=== PATIENT | female | born 1955 | race Caucasian/White ===

== ENCOUNTER 2017-08-27 07:58 | Inpatient (IN) | payer MEDICARE ==
[~2017-08-27] VITALS: Ht 157.5 cm; Wt 106.0 kg
[2017-08-27] VITALS (8 sets, daily range): BP systolic 141–192; BP diastolic 78–114; PULSE 80–102; RESP 17–21; TEMP 98–98.5; O2SAT 94–95
[~2017-08-27 07:58] MED LIST: AMLO5 PO; BUSP10TA PO; BUSP5TAB PO; CETI10 PO; CYMB60CA PO; EPIN1INJ21 IV PUSH; EPIN1INJ21 SQ; FOLI5CAP PO; GABA300C5 PO; GEMF600T PO; GLIP5TAB8 PO; INVA1INJ IV; LIPI20TA PO; METO50TA PO; METR-1 PO; NORC5TAB PO; OMEP20TA93 PO; SOLU250I IV PUSH; SYNT25TA PO
[2017-08-27] MEDS ORDERED: NITROGLYCERIN 2% OINT 1 GM PACKET TOP ONE (08:15)
--- NOTE | 2017-08-27 08:16 | PD ---
HPI Chief Complaint: Chest Pain Time Seen by Provider: 08:03 Travel History International Travel<30 days: No Contact w/Intl Traveler<30days: No Traveled to known affect area: No History of Present Illness HPI The patient is a 62-year-old female who presents to the emergency department via EMS for chest pain. The patient states she awakened at 5 AM, was feeling well, however, at 5:30 AM she developed chest pain. The chest pain was substernal, described as pressure, and radiating to the left arm. The patient also had shortness of breath and nausea without any diaphoresis. The patient does have a history of hypertension, hyperlipidemia, diabetes, and tobacco use. She denies any known history of coronary artery disease. 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 Marty Salazar. The patient was administered aspirin and 3 nitroglycerin sublingual prior to arrival. The patient's chest pain went from an 8/10 to a 0/ 10. Upon arrival the patient is chest pain-free. Symptoms are moderate, alleviated by nitroglycerin, and there are no known exacerbating factors. The patient denies any history of pulmonary embolism, DVT, recent travel, but was hospitalized 1 month ago at [facility]. [facility] Past Medical History Anxiety: Yes Depression: Yes Cardiovascular Problems: Yes Diabetes: Yes Hypertension: Yes Psychiatric: Yes (PTSD) Myocardial Infarction: Yes Thyroid Disease: Yes Triglycerides - High: Yes ?: Not Past Surgical History Gynecologic Surgery: Yes (partial hysterectomy) Hysterectomy: Yes Other Surgery: Yes (carpal tunnel) Social History Alcohol Use: Yes Tobacco Use: Yes Substance Use: Yes Allergies-Medications (Allergen,Severity, Reaction): Coded Allergies: piperacillin (Verified Allergy, Severe, Rash, 08/27/17) Maculopapular all over the body. Was also on Dilaudid. Both stopped at same time and rash resolved. sulfamethoxazole (Verified Allergy, Severe, Rash, 08/27/17) tazobactam (Verified Allergy, Severe, Rash, 08/27/17) Maculopapular all over the body. Was also on Dilaudid. Both stopped at same time and rash resolved. trimethoprim (Verified Allergy, Severe, 08/27/17) ciprofloxacin (Verified Allergy, Intermediate, Flushing, red raised rash, 08/27/17) nalbuphine (Verified Allergy, Unknown, 08/27/17) Reported Meds & Prescriptions Reported Meds & Active Scripts Active Invanz Inj (Ertapenem) 1 Gm Addvial 1,000 Mg IV DAILY Stop date: 06/24/2016 Epinephrine Inj 1 Mg/Ml Inj 0.3 Mg SQ ONCE PRN Give with any signs of respiratory distress. Epinephrine Inj 1 Mg/Ml Inj 0.3 Mg IV PUSH ONCE PRN Solu-Cortef Inj (Hydrocortisone Sodium Succinate) 250 Mg Inj 250 Mg IV PUSH ONCE PRN Give over 30-60 seconds. Flagyl (Metronidazole) 500 Mg Tab 500 Mg PO Q8HR 21 Days Reported Folic Acid 0.8 Mg Tab 1,000 Mcg PO DAILY Buspirone (Buspirone HCl) 10 Mg Tab 10 Mg PO BID Hydralazine HCl 50 Mg Tablet BID Novolin N Inj (Insulin Human NPH) 1,000 Unit/10 Ml Vial 20 Units SQ Novolog Flexpen Inj (Insulin Aspart) 300 Unit/3 Ml Pen 1 Units SQ Gabapentin 300 Mg Cap 300 Mg PO HS Buspirone (Buspirone HCl) 5 Mg Tab 5 Mg PO BID Synthroid (Levothyroxine Sodium) 25 Mcg Tab 25 Mcg PO DAILY Omeprazole 20 Mg Tab 20 Mg PO DAILY Glipizide 5 Mg Tab 2.5 Mg PO BIDAC Take 30 minutes before a meal Lipitor (Atorvastatin Calcium) 20 Mg Tab 20 Mg PO HS Metoprolol Tartrate 50 Mg Tab 50 Mg PO BID Cymbalta DR (Duloxetine HCl) 60 Mg Capdr 60 Mg PO DAILY Gemfibrozil 600 Mg Tab 600 Mg PO BIDAC Take 30 minutes prior to breakfast and dinner. Review of Systems Except as stated in HPI: all other systems reviewed are Neg General / Constitutional: No: Fever HENT: No: Lightheadedness Cardiovascular: Positive: Chest Pain or Discomfort, No: Diaphoresis, Dyspnea on exertion Respiratory: Positive: Shortness of Breath Gastrointestinal: Positive: Nausea, No: Vomiting Musculoskeletal: No: Edema Neurologic: No: Dizziness Physical Exam Narrative GENERAL: Awake, alert, pleasant 8-year-old female who appears her stated age and is in no acute respiratory distress. SKIN: Focused skin assessment warm/dry. HEAD: Atraumatic. Normocephalic. EYES: Pupils equal and round. No scleral icterus. No injection or drainage. ENT: No nasal bleeding or discharge. Mucous membranes pink and moist. NECK: Trachea midline. No JVD. CARDIOVASCULAR: Regular, tachycardic with a heart rate of 100. RESPIRATORY: No accessory muscle use. Clear to auscultation. Breath sounds equal bilaterally. GASTROINTESTINAL: Abdomen soft, obese, no rebound tenderness. MUSCULOSKELETAL: No obvious deformities. No clubbing. No cyanosis. No edema. NEUROLOGICAL: Awake and alert. No obvious cranial nerve deficits. Motor grossly within normal limits. Normal speech. Nonfocal. PSYCHIATRIC: Appropriate mood and affect; insight and judgment normal. Data Data Last Documented VS Vital Signs Date Time Temp Pulse Resp B/P (MAP) Pulse Ox O2 Delivery O2 Flow Rate FiO2 08/27/17 08:14 95 Nasal Cannula 2.00 08/27/17 08:09 08/27/17 08:02 98.5 98 21 Orders Orders Electrocardiogram (08/27/17 08:04) Ckmb (Isoenzyme) Profile (08/27/17 08:04) Complete Blood Count With Diff (08/27/17 08:04) Comprehensive Metabolic Panel (08/27/17 08:04) D-Dimer (08/27/17 08:04) Magnesium (Mg) (08/27/17 08:04) Prothrombin Time / Inr (Pt) (08/27/17 08:04) Act Partial Throm Time (Ptt) (08/27/17 08:04) Troponin I (08/27/17 08:04) Lipase (08/27/17 08:04) Ecg Monitoring (08/27/17 08:04) Bilateral Bp Monitoring (08/27/17 08:04) Iv Access Insert/Monitor (08/27/17 08:04) Oximetry (08/27/17 08:04) Oxygen Administration (08/27/17 08:04) Nitroglycerin 2% Oint (Nitroglycerin 2% (08/27/17 08:15) Sodium Chloride 0.9% Flush (Ns Flush) (08/27/17 08:15) Chest, Pa & Lat (08/27/17 08:04) Ondansetron Odt (Zofran Odt) (08/27/17 09:00) Morphine Inj (Morphine Inj) (08/27/17 09:15) CKMB (08/27/17 08:05) CKMB% (08/27/17 08:05) Admit Order (Ed Use Only) (08/27/17 10:10) Labs Laboratory Tests Test 08/27/17 08:05 White Blood Count 8.6 TH/MM3 Red Blood Count 4.88 MIL/MM3 Hemoglobin 15.7 GM/DL Hematocrit 45.1 % Mean Corpuscular Volume 92.3 FL Mean Corpuscular Hemoglobin 32.1 PG Mean Corpuscular Hemoglobin Concent 34.7 % Red Cell Distribution Width 13.4 % Platelet Count 334 TH/MM3 Mean Platelet Volume 7.7 FL Neutrophils (%) (Auto) 63.0 % Lymphocytes (%) (Auto) 24.4 % Monocytes (%) (Auto) 7.7 % Eosinophils (%) (Auto) 3.6 % Basophils (%) (Auto) 1.3 % Neutrophils # (Auto) 5.4 TH/MM3 Lymphocytes # (Auto) 2.1 TH/MM3 Monocytes # (Auto) 0.7 TH/MM3 Eosinophils # (Auto) 0.3 TH/MM3 Basophils # (Auto) 0.1 TH/MM3 CBC Comment DIFF FINAL Differential Comment Prothrombin Time 10.3 SEC Prothromb Time International Ratio 1.0 RATIO Activated Partial Thromboplast Time 24.0 SEC D-Dimer Quantitative (PE/DVT) 0.31 MG/L FEU Blood Urea Nitrogen 10 MG/DL Creatinine 0.89 MG/DL Random Glucose 224 MG/DL Total Protein 7.2 GM/DL Albumin 3.0 GM/DL Calcium Level 9.0 MG/DL Magnesium Level 1.7 MG/DL Alkaline Phosphatase 108 U/L Aspartate Amino Transf (AST/SGOT) 62 U/L Alanine Aminotransferase (ALT/SGPT) 50 U/L Total Bilirubin 0.4 MG/DL Sodium Level 139 MEQ/L Potassium Level 3.9 MEQ/L Chloride Level 105 MEQ/L Carbon Dioxide Level 21.8 MEQ/L Anion Gap 12 MEQ/L Estimat Glomerular Filtration Rate 65 ML/MIN Total Creatine Kinase 117 U/L Creatine Kinase MB 1.3 NG/ML Troponin I 0.06 NG/ML Lipase 346 U/L MDM Medical Decision Making Medical Screen Exam Complete: Yes Emergency Medical Condition: Yes Medical Record Reviewed: Yes Interpretation(s) EKG reveals sinus tachycardia with occasional supraventricular premature complex. Nonspecific ST changes. Q-wave noted in lead III. Inverted T-wave in lead aVL. EKG #2, pain /10, reveals sinus arrhythmia versus atrial fibrillation. Q-wave noted in lead III. Nonspecific ST-T wave changes. Last Impressions Chest X-Ray 08/27/17 0804 Signed Impressions: CONCLUSION: No acute cardiopulmonary abnormality is identified. Laboratory Tests Test 08/27/17 08:05 White Blood Count 8.6 TH/MM3 Red Blood Count 4.88 MIL/MM3 Hemoglobin 15.7 GM/DL Hematocrit 45.1 % Mean Corpuscular Volume 92.3 FL Mean Corpuscular Hemoglobin 32.1 PG Mean Corpuscular Hemoglobin Concent 34.7 % Red Cell Distribution Width 13.4 % Platelet Count 334 TH/MM3 Mean Platelet Volume 7.7 FL Neutrophils (%) (Auto) 63.0 % Lymphocytes (%) (Auto) 24.4 % Monocytes (%) (Auto) 7.7 % Eosinophils (%) (Auto) 3.6 % Basophils (%) (Auto) 1.3 % Neutrophils # (Auto) 5.4 TH/MM3 Lymphocytes # (Auto) 2.1 TH/MM3 Monocytes # (Auto) 0.7 TH/MM3 Eosinophils # (Auto) 0.3 TH/MM3 Basophils # (Auto) 0.1 TH/MM3 CBC Comment DIFF FINAL Differential Comment Prothrombin Time 10.3 SEC Prothromb Time International Ratio 1.0 RATIO Activated Partial Thromboplast Time 24.0 SEC D-Dimer Quantitative (PE/DVT) 0.31 MG/L FEU Blood Urea Nitrogen 10 MG/DL Creatinine 0.89 MG/DL Random Glucose 224 MG/DL Total Protein 7.2 GM/DL Albumin 3.0 GM/DL Calcium Level 9.0 MG/DL Magnesium Level 1.7 MG/DL Alkaline Phosphatase 108 U/L Aspartate Amino Transf (AST/SGOT) 62 U/L Alanine Aminotransferase (ALT/SGPT) 50 U/L Total Bilirubin 0.4 MG/DL Sodium Level 139 MEQ/L Potassium Level 3.9 MEQ/L Chloride Level 105 MEQ/L Carbon Dioxide Level 21.8 MEQ/L Anion Gap 12 MEQ/L Estimat Glomerular Filtration Rate 65 ML/MIN Total Creatine Kinase 117 U/L Troponin I 0.06 NG/ML Lipase 346 U/L Differential Diagnosis Differential diagnosis includes acute coronary syndrome, STEMI, pulmonary embolism, esophageal spasm, pancreatitis, GERD, aortic dissection. Narrative Course IV was established, labs are drawn and sent, the patient was placed on cardiac telemetry monitoring and continuous pulse oximetry monitoring. The patient is chest pain-free upon arrival, EKG does reveal sinus tachycardia with a Q-wave in lead III and inverted T-wave in aVL, no STEMI criteria. I tried to evaluate an old EKG from June 14, 2016, however, Pyramis would not allow access to the EKG. The patient is tachycardic with recent hospitalization, therefore, d- dimer was sent to lab. The patient was placed on Nitropaste, but once again was chest pain-free upon arrival. D-dimer 0.31, therefore, no indication for CT pulmonary angiogram. The patient's chest pain came back to 03/23, therefore, EKG was repeated, no evidence of STEMI. The patient was administered morphine and Reglan. The patient's troponin was positive at 0.06, patient has had multiple risk factors, possibly could be an STEMI. Therefore, the patient will be admitted to the on-call medical service and may benefit from evaluation by cardiology. The patient will be admitted. Physician Communication Physician Communication The on-call medical service was paged for admission. I discussed the patient with Dr. Ramirez who agrees with admission. Diagnosis Primary Impression: NSTEMI (non-ST elevated myocardial infarction) Admitting Information Admitting Physician Requests: Admit Condition: Stable Rolando Sam MD Aug 27, 2017 08:16
[2017-08-27] MEDS: SODIUM CHLORIDE 0.9% FLUSH 10 ML FLUSH IVF PRN ×2 (08:26→09:09)
[2017-08-27 08:29] LABS: AUTOMATED NEUTROPHIL # 5.4 TH/MM3 (1.8-7.7); BASOPHIL # 0.1 TH/MM3 (0-0.2); BASOPHIL % 1.3 % (0.0-2.0); EOSINOPHIL # 0.3 TH/MM3 (0-0.4); EOSINOPHIL % 3.6 % (0.0-4.0); HEMATOCRIT 45.1 % (35.0-46.0); HEMOGLOBIN 15.7 GM/DL (11.6-15.3); LYMPH % 24.4 % (9.0-44.0); LYMPHOCYTE # 2.1 TH/MM3 (1.0-4.8); MEAN CELL VOLUME 92.3 FL (80.0-100.0); MEAN CORPUSCULAR HEMOGLOBIN 32.1 PG (27.0-34.0); MEAN CORPUSCULAR HGB CONC 34.7 % (32.0-36.0); MEAN PLATELET VOLUME 7.7 FL (7.0-11.0); MONO % 7.7 % (0.0-8.0); MONOCYTE # 0.7 TH/MM3 (0-0.9); PLATELET COUNT 334 TH/MM3 (150-450); RED BLOOD COUNT 4.88 MIL/MM3 (4.00-5.30); RED CELL DISTRIBUTION WIDTH 13.4 % (11.6-17.2); WHITE BLOOD COUNT 8.6 TH/MM3 (4.0-11.0)
--- NOTE | 2017-08-27 08:36 | RADRPT ---
EXAM DATE: 08/27/2017 8:28 AM EDT AGE/SEX: 62 years / Female INDICATIONS: Chest pain. CLINICAL DATA: This is the patient's initial encounter. Patient reports that signs and symptoms have been present for 1 day and indicates a pain score of 10/10. MEDICAL/SURGICAL HISTORY: Hypertension. Diabetes mellitus type II. Smoker. Hysterectomy. Cerv ical fusion. COMPARISON: No prior exams available for comparison. FINDINGS: AP and lateral views of the chest demonstrate a normal-sized cardiac silhouette. There is no effusion , consolidation, or pneumothorax. The bones and soft tissues demonstrate no acute abnormality. There are degenerative changes of the thoracic spine. Cervical spine hardware is present. EKG lines overlie the patient. CONCLUSION: No acute cardiopulmonary abnormality is identified. Electronically signed by: Darrick Paula MD 08/27/2017 8:35 AM EDT
[2017-08-27] MEDS ORDERED: BUSP10TA PO (08:38)
[2017-08-27] MEDS ORDERED: HYDR-3800 (08:38)
[2017-08-27] MEDS ORDERED: NOVOINJ3 SQ (08:38)
[2017-08-27] MEDS ORDERED: NOVONP2 SQ (08:38)
[2017-08-27] MEDS ORDERED: FOLI800T PO (08:38)
[2017-08-27 08:45] LABS: PROTHROMBIN TIME - PATIENT 10.3 SEC (9.8-11.6)
[2017-08-27 08:46] LABS: D-DIMER 0.31 MG/L FEU (0.00-0.50)
[2017-08-27] MEDS ORDERED: MORPHINE SULFATE 2 MG/ML SYRINGE IV PUSH ONE (09:00)
[2017-08-27] MEDS ORDERED: ONDANSETRON ODT 4 MG TAB PO ONE (09:00)
[2017-08-27 09:14] LABS: ALKALINE PHOSPHATASE 108 U/L (45-117); ALT (GPT) 50 U/L (10-53); AST (GOT) 62 U/L (15-37); BICARBONATE 21.8 MEQ/L (21.0-32.0); BLOOD UREA NITROGEN 10 MG/DL (7-18); CHLORIDE 105 MEQ/L (98-107); CREATININE 0.89 MG/DL (0.50-1.00); GLOMERULAR FILTRATION RATE 65 ML/MIN (>89); GLUCOSE,RANDOM 224 MG/DL (74-106); MAGNESIUM 1.7 MG/DL (1.5-2.5); SODIUM (NA) 139 MEQ/L (136-145); TOTAL BILIRUBIN ADULT 0.4 MG/DL (0.2-1.0); TOTAL PROTEIN 7.2 GM/DL (6.4-8.2); TROPONIN I 0.06 NG/ML (0.02-0.05)
[2017-08-27] MEDS ORDERED: MORPHINE SULFATE 4 MG/ML INJ IV PUSH ONE (09:15)
[2017-08-27] MEDS ORDERED: SODIUM CHLORIDE 0.9% FLUSH 10 ML FLUSH IV FLUSH PRN (10:15)
[2017-08-27] MEDS ORDERED: NALOXONE HCL 0.4 MG/ML AMP IV PUSH PRN (10:15)
[2017-08-27] MEDS ORDERED: MORPHINE SULFATE 4 MG/ML INJ IV PUSH PRN (10:15)
[2017-08-27] MEDS ORDERED: MAGNESIUM HYDROXIDE SUSP 30 ML CUP PO PRN (10:15)
[2017-08-27] MEDS ORDERED: ONDANSETRON ODT 4 MG TAB PO PRN (10:15)
[2017-08-27] MEDS ORDERED: ENOXAPARIN SODIUM 40 MG/0.4 ML SYRINGE SQ SCH (12:00)
[2017-08-27] MEDS: SODIUM CHLOR 0.9% 1000 ML INJ 1,000 ML IV SCH (12:22)
--- NOTE | 2017-08-27 14:09 | HHI.HP ---
[facility] Service [facility] Primary Care Physician No Primary Care Physician Admission Diagnosis NSTEMI Diagnoses: (1) Chest pain Diagnosis: Principal (2) Elevated troponin Diagnosis: Principal Travel History International Travel<30 Days: No Contact w/Intl Traveler <30 Da: No Traveled to Known Affected Are: No History of Present Illness Mrs. Giang is a 62-year-old female. She has a past history of diabetes, hypertension, and smoking. She currently still smokes but says she smokes less than half pack a day. Family history is positive for CVA in her grandmother myocardial infarction in the patient's mother. She came into the hospital today complaining of tight central chest pain which radiated to her left arm. The pain has improved through time. She had first thought it was GI but subsequently developed pain severe enough to concern her and worried her that it could be her heart. She has one previous episode of chest pain earlier this year and had workup in the hospital which included telemetry monitoring and stress test. She cites that workup is negative. She has been told by her primary care physician the suspicion for a myocardial infarction based on EKG was present, 25 years ago. No other complaints today. First set of cardiac enzymes shows a troponin of 0.06. EKG changes are not specific. ST changes are not seen. Review of Systems Constitutional: DENIES: Fatigue, Fever, Chills Eyes: DENIES: Diplopia, Eye inflammation, Eye pain Ears, nose, mouth, throat: DENIES: Hearing loss, Vertigo, Nasal discharge Respiratory: DENIES: Cough, Wheezing, Shortness of breath Cardiovascular: COMPLAINS OF: Chest pain, DENIES: Palpitations, Syncope Gastrointestinal: DENIES: Abdominal pain, Black stools, Bloody stools, Constipation Musculoskeletal: DENIES: Joint pain, Muscle aches, Stiffness, Joint Swelling Integumentary: DENIES: Abnormal pigmentation, Pruritus, Rash, Nail changes Hematologic/lymphatic: DENIES: Bruising, Lymphadenopathy Immunologic/allergic: DENIES: Eczema, Urticaria Neurologic: DENIES: Abnormal gait, Headache, Paresthesias Psychiatric: DENIES: Anxiety, Confusion, Hallucinations Past Family Social History Past Medical History General anxiety disorder Depression Cardiovascular disease Diabetes Hypertension Old CA Hypothyroidism Hyperlipidemia PTSD Past Surgical History Hysterectomy Carpal tunnel surgery Reported Medications Reported Meds & Active Scripts Active Invanz Inj (Ertapenem) 1 Gm Addvial 1,000 Mg IV DAILY Stop date: 06/24/2016 Epinephrine Inj 1 Mg/Ml Inj 0.3 Mg SQ ONCE PRN Give with any signs of respiratory distress. Epinephrine Inj 1 Mg/Ml Inj 0.3 Mg IV PUSH ONCE PRN Solu-Cortef Inj (Hydrocortisone Sodium Succinate) 250 Mg Inj 250 Mg IV PUSH ONCE PRN Give over 30-60 seconds. Flagyl (Metronidazole) 500 Mg Tab 500 Mg PO Q8HR 21 Days Reported Folic Acid 0.8 Mg Tab 1,000 Mcg PO DAILY Buspirone (Buspirone HCl) 10 Mg Tab 10 Mg PO BID Hydralazine HCl 50 Mg Tablet BID Novolin N Inj (Insulin Human NPH) 1,000 Unit/10 Ml Vial 20 Units SQ Novolog Flexpen Inj (Insulin Aspart) 300 Unit/3 Ml Pen 1 Units SQ Gabapentin 300 Mg Cap 300 Mg PO HS Buspirone (Buspirone HCl) 5 Mg Tab 5 Mg PO BID Synthroid (Levothyroxine Sodium) 25 Mcg Tab 25 Mcg PO DAILY Omeprazole 20 Mg Tab 20 Mg PO DAILY Glipizide 5 Mg Tab 2.5 Mg PO BIDAC Take 30 minutes before a meal Lipitor (Atorvastatin Calcium) 20 Mg Tab 20 Mg PO HS Metoprolol Tartrate 50 Mg Tab 50 Mg PO BID Cymbalta DR (Duloxetine HCl) 60 Mg Capdr 60 Mg PO DAILY Gemfibrozil 600 Mg Tab 600 Mg PO BIDAC Take 30 minutes prior to breakfast and dinner. Allergies: Coded Allergies: piperacillin (Verified Allergy, Severe, Rash, 08/27/17) Maculopapular all over the body. Was also on Dilaudid. Both stopped at same time and rash resolved. sulfamethoxazole (Verified Allergy, Severe, Rash, 08/27/17) tazobactam (Verified Allergy, Severe, Rash, 08/27/17) Maculopapular all over the body. Was also on Dilaudid. Both stopped at same time and rash resolved. trimethoprim (Verified Allergy, Severe, 08/27/17) ciprofloxacin (Verified Allergy, Intermediate, Flushing, red raised rash, 08/27/17) nalbuphine (Verified Allergy, Unknown, 08/27/17) Active Ordered Medications Administered Medications Medications (Trade) Dose Ordered Sig/Tabatha Route PRN Reason Start Time Stop Time Status Last Admin Dose Admin Sodium Chloride 1,000 ml @ 42 mls/hr [id number] IV 08/27/17 11:00 08/27/17 12:22 Enoxaparin Sodium (Lovenox Inj) 40 mg Q24H SQ 08/27/17 12:00 08/27/17 12:21 Family History CVA in grandmother Myocardial infarction mother Social History Alcohol Use: Yes Tobacco Use: Yes Substance Use: Yes Physical Exam Vital Signs Vital Signs Date Time Temp Pulse Resp B/P (MAP) Pulse Ox O2 Delivery O2 Flow Rate FiO2 08/27/17 12:01 08/27/17 10:38 86 17 163/98 (119) 95 Nasal Cannula 2.00 08/27/17 08:14 95 Nasal Cannula 2.00 08/27/17 08:09 95 Nasal Cannula 2.00 08/27/17 08:09 95 Nasal Cannula 2.00 08/27/17 08:06 167/114 (131) 178/81 (113) 08/27/17 08:02 98.5 98 21 167/114 (131) 95 Physical Exam GENERAL: This is a well-nourished, well-developed patient, in no apparent distress. SKIN: No rashes, ecchymoses or lesions. Cool and dry. HEAD: Atraumatic. Normocephalic. No temporal or scalp tenderness. EYES: Pupils equal round and reactive. Extraocular motions intact. No scleral icterus. No injection or drainage. ENT: Nose without bleeding, purulent drainage or septal hematoma. Throat without erythema, tonsillar hypertrophy or exudate. Uvula midline. Airway patent. NECK: Trachea midline. No JVD or lymphadenopathy. Supple, nontender, no meningeal signs. CARDIOVASCULAR: Regular rate and rhythm without murmurs, gallops, or rubs. RESPIRATORY: Clear to auscultation. Breath sounds equal bilaterally. No wheezes , rales, or rhonchi. GASTROINTESTINAL: Abdomen soft, non-tender, nondistended. No hepato-splenomegaly , or palpable masses. No guarding. MUSCULOSKELETAL: Extremities without clubbing, cyanosis, or edema. No joint tenderness, effusion, or edema noted. No calf tenderness. Negative Homans sign bilaterally. NEUROLOGICAL: Awake and alert. Cranial nerves II through XII intact. Motor and sensory grossly within normal limits. Five out of 5 muscle strength in all muscle groups. Normal speech. Laboratory Laboratory Tests Test 08/27/17 08:05 White Blood Count 8.6 Red Blood Count 4.88 Hemoglobin 15.7 Hematocrit 45.1 Mean Corpuscular Volume 92.3 Mean Corpuscular Hemoglobin 32.1 Mean Corpuscular Hemoglobin Concent 34.7 Red Cell Distribution Width 13.4 Platelet Count 334 Mean Platelet Volume 7.7 Neutrophils (%) (Auto) 63.0 Lymphocytes (%) (Auto) 24.4 Monocytes (%) (Auto) 7.7 Eosinophils (%) (Auto) 3.6 Basophils (%) (Auto) 1.3 Neutrophils # (Auto) 5.4 Lymphocytes # (Auto) 2.1 Monocytes # (Auto) 0.7 Eosinophils # (Auto) 0.3 Basophils # (Auto) 0.1 CBC Comment DIFF FINAL Differential Comment Prothrombin Time 10.3 Prothromb Time International Ratio 1.0 Activated Partial Thromboplast Time 24.0 D-Dimer Quantitative (PE/DVT) 0.31 Blood Urea Nitrogen 10 Creatinine 0.89 Random Glucose 224 Total Protein 7.2 Albumin 3.0 Calcium Level 9.0 Magnesium Level 1.7 Alkaline Phosphatase 108 Aspartate Amino Transf (AST/SGOT) 62 Alanine Aminotransferase (ALT/SGPT) 50 Total Bilirubin 0.4 Sodium Level 139 Potassium Level 3.9 Chloride Level 105 Carbon Dioxide Level 21.8 Anion Gap 12 Estimat Glomerular Filtration Rate 65 Total Creatine Kinase 117 Creatine Kinase MB 1.3 Troponin I 0.06 Lipase 346 Result Diagram: 08/27/1780408/27/17804 Imaging Last Impressions Chest X-Ray 08/27/17803 Signed Impressions: CONCLUSION: No acute cardiopulmonary abnormality is identified. Caprini VTE Risk Assessment Caprini VTE Risk Assessment: Mod/High Risk (score >= 2) Caprini Risk Assessment Model Point Value = 1 Point Value = 2 Point Value = 3 Point Value = 5 Age 41-60 Minor surgery BMI > 25 kg/m2 Swollen legs Varicose veins or History of unexplained or recurrent spontaneous Oral contraceptives or hormone replacement Sepsis (< 1 month) Serious lung disease, including pneumonia (< 1 month) Abnormal pulmonary function Acute myocardial infarction Congestive heart failure (< 1 month) History of inflammatory bowel disease Medical patient at bed rest Age 61-74 Arthroscopic surgery Major open surgery (> 45 min) Laparoscopic surgery (> 45 min) Malignancy Confined to bed (> 72 hours) Immobilizing plaster cast Central venous access Age >= 75 History of VTE Family history of VTE Factor V Leiden Prothrombin [id number] Lupus anticoagulant Anticardiolipin antibodies Elevated serum homocysteine Heparin-induced thrombocytopenia Other congenital or acquired thrombophilia Stroke (< 1 month) Elective arthroplasty Hip, pelvis, or leg fracture Acute spinal cord injury (< 1 month) Prophylaxis Regimen Total Risk Factor Score Risk Level Prophylaxis Regimen 0-1 Low Early ambulation 2 Moderate Order ONE of the following: *Sequential Compression Device (SCD) *Heparin 5000 units SQ BID 3-4 Higher Order ONE of the following medications: *Heparin 5000 units SQ TID *Enoxaparin/Lovenox 40 mg SQ daily (WT < 150 kg, CrCl > 30 mL/min) *Enoxaparin/Lovenox 30 mg SQ daily (WT < 150 kg, CrCl > 10-29 mL/min) *Enoxaparin/Lovenox 30 mg SQ BID (WT < 150 kg, CrCl > 30 mL/min) AND/OR *Sequential Compression Device (SCD) 5 or more Highest Order ONE of the following medications: *Heparin 5000 units SQ TID (Preferred with Epidurals) *Enoxaparin/Lovenox 40 mg SQ daily (WT < 150 kg, CrCl > 30 mL/min) *Enoxaparin/Lovenox 30 mg SQ daily (WT < 150 kg, CrCl > 10-29 mL/min) *Enoxaparin/Lovenox 30 mg SQ BID (WT < 150 kg, CrCl > 30 mL/min) AND *Sequential Compression Device (SCD) Assessment and Plan Problem List: (1) Chest pain ICD Code: R07.9 - Chest pain, unspecified (2) Elevated troponin ICD Code: R74.8 - Abnormal levels of other serum enzymes Assessment and Plan 62-year-old female admitted secondary to chest pain with elevated troponin Chest pain Troponin elevation Troponin elevation upfront is mild at 0.06 Monitor trend in troponins for now No significant EKG changes Consider stress testing if troponins remain low at second check evaluate for ACS Follow cardiac enzymes Aspirin daily When necessary oxygen When necessary morphine for pain. When necessary nitroglycerin Follow on telemetry Cardiology consult if infarction becomes more suspicious General anxiety disorder Depression PTSD No change to baseline management Follow these conditions clinically Cardiovascular disease Possible old CA Cardiac workup as above Diabetes mellitus type 2 Follow blood sugars Insulin sliding scale Diabetic diet Hypertension Continue baseline treatment Follow blood pressures Adjust treatments as needed Hyperlipidemia Continue present treatment Follow as an outpatient Hypothyroidism Continue supplement and follow as an outpatient DVT prophylaxis Antonio Ramirez MD Aug 27, 2017 14:09
[2017-08-27] MEDS: ACETAMINOPHEN 500 MG CPLT PO PRN (15:13)
[2017-08-27] MEDS ORDERED: DEXTROSE 50% IN WATER 50 ML VIAL(D50) IV PUSH PRN (16:00)
[2017-08-27] MEDS ORDERED: GLUCAGON 1 MG/ML VIAL OTHER PRN (16:00)
[2017-08-27] MEDS: INSULIN ASPART SUPPLEMENTAL SCALE SQ SCH ×2 (16:15→21:30)
[2017-08-27] MEDS ORDERED: NITROGLYCERIN 0.4 MG SL 25 TABS/BTL SL PRN (18:15)
[2017-08-27] MEDS ORDERED: cloNIDine HCL 0.1 MG TAB PO PRN (18:15)
[2017-08-27] MEDS ORDERED: GABAPENTIN 300 MG CAP PO SCH (21:00)
[2017-08-27] MEDS: METOPROLOL TARTRATE 50 MG TAB PO SCH (21:30)
[2017-08-27] MEDS: ATORVASTATIN 20 MG TAB PO SCH (21:30)
[2017-08-27] MEDS: SODIUM CHLORIDE 0.9% FLUSH 10 ML FLUSH IV FLUSH SCH (21:30)
[2017-08-27] MEDS: busPIRone HCL 10 MG TAB PO SCH (21:34)
[2017-08-27] MEDS ORDERED: MORPHINE SULFATE 8 MG/ML INJ IV PUSH PRN (23:30)
[2017-08-27] MEDS ORDERED: HEPARIN SODIUM - IV 10,000 UNITS/10 ML VIAL IV PUSH ONE ×2 (23:30→23:45)
[2017-08-28] VITALS (9 sets, daily range): BP systolic 119–147; BP diastolic 69–87; PULSE 55–88; RESP 17–22; TEMP 97.6–98.1; O2SAT 94–97
[2017-08-28] MEDS: HEPARIN-D5W 25,000 U/250 ML 250 ML IV PRN ×3 (00:20→23:06)
[2017-08-28] MEDS: NITROGLYCERIN 2% OINT 1 GM PACKET TOPICAL SCH ×5 (00:26→23:09)
[2017-08-28] MEDS: ACETAMINOPHEN 500 MG CPLT PO PRN (05:10)
[2017-08-28] MEDS: GEMFIBROZIL 600 MG TAB PO SCH ×2 (05:10→16:25)
[2017-08-28] MEDS ORDERED: HEPARIN SODIUM - IV 10,000 UNITS/10 ML VIAL IV PUSH PRN ×2 (05:30)
[2017-08-28] MEDS: MORPHINE SULFATE 4 MG/ML INJ IV PUSH PRN ×3 (06:25→20:52)
[2017-08-28] MEDS: INSULIN ASPART SUPPLEMENTAL SCALE SQ SCH ×4 (07:47→20:53)
[2017-08-28] MEDS: DULoxetine HCl DR 60 MG CAP PO SCH (08:17)
[2017-08-28] MEDS: SODIUM CHLORIDE 0.9% FLUSH 10 ML FLUSH IV FLUSH SCH ×2 (08:17→20:54)
[2017-08-28] MEDS: FOLIC ACID 1 MG TAB PO SCH (08:17)
[2017-08-28] MEDS: METOPROLOL TARTRATE 50 MG TAB PO SCH ×2 (08:18→20:52)
[2017-08-28] MEDS: PANTOPRAZOLE SOD 20 MG DELAYED RELEASE TAB PO SCH (08:18)
[2017-08-28] MEDS: busPIRone HCL 10 MG TAB PO SCH ×2 (08:18→20:52)
[2017-08-28] MEDS: LEVOTHYROXINE SODIUM 25 MCG TAB PO SCH (08:23)
[2017-08-28] MEDS ORDERED: diphenhydrAMINE HCL 50 MG CAP PO SCH (10:00)
[2017-08-28] MEDS ORDERED: MIDAZOLAM HCL 2 MG/2 ML VIAL IV PUSH SCH (10:00)
[2017-08-28] MEDS ORDERED: DIAZEPAM 10 MG TAB PO SCH (10:00)
--- NOTE | 2017-08-28 10:23 | HHI.PR ---
Subjective Remarks 62 years old male smoker - process of quitting down to 2-3 cigarettes per day complains of chest janee yesterday now chest pain free on telemetry- sinus with ocasional PACs denies any nausea or vomting, or shotneess of breat, no leg swelling Objective Vitals Vital Signs Date Time Temp Pulse Resp B/P (MAP) Pulse Ox O2 Delivery O2 Flow Rate FiO2 08/28/17 08:00 98.1 73 22 131/80 (97) 95 08/28/17 06:30 20 08/28/17 06:10 20 08/28/17 04:00 97.7 68 18 138/84 (102) 97 08/28/17 04:00 69 08/28/17 00:00 97.6 88 17 143/87 (105) 96 08/28/17 00:00 64 08/27/17 20:00 96 08/27/17 20:00 98.1 88 17 141/78 (99) 94 08/27/17 19:28 Nasal Cannula 2.00 08/27/17 16:00 102 08/27/17 16:00 98.0 80 20 192/108 (136) 94 08/27/17 14:37 95 Nasal Cannula 2.00 08/27/17 12:01 08/27/17 12:00 98.0 84 20 167/97 (120) 94 08/27/17 10:38 86 17 163/98 (119) 95 Nasal Cannula 2.00 I/O 08/27/17 08/27/17 08/27/17 08/28/17 08/28/17 08/28/17 07:00 15:00 23:00 07:00 15:00 23:00 Intake Total 240 ml 120 ml Output Total 200 ml 100 ml Balance 40 ml 20 ml Intake Oral 240 ml 120 ml Output Urine Total 200 ml 100 ml # Bowel Movements 0 Result Diagram: 08/27/1780408/27/17804 Imaging Last Impressions Chest X-Ray 08/27/17803 Signed Impressions: CONCLUSION: No acute cardiopulmonary abnormality is identified. Objective Remarks awake and aler,t, no acute distress anciteric lungs- no rales regular rhythm abdomensoft, good bwoel sounds extremities no edema neuro exam- unremarkable A/P Problem List: (1) Chest pain ICD Code: R07.9 - Chest pain, unspecified (2) Elevated troponin ICD Code: R74.8 - Abnormal levels of other serum enzymes Assessment and Plan 62-year-old female admitted secondary to chest pain with elevated troponin NSTEMI History fo CAD, HTN - elevated troponins, 12 Lekg- diffuse flattening, no acute changes - cardiology ff- plan for cath tomorrow - heparin drip, ASA, BB, nitrates/JONE General anxiety disorder Depression PTSD - continue home meds Diabetes mellitus type 2 DM neuropathy Follow blood sugars- states good hypoglycemic awareness Insulin sliding scale Diabetic diet, chekc A1C - Increase gabapentin to 300 mg po tid - home dose Hyperlipidemia Continue statins, lipid panel in am Hypothyroidism Continue- synthroid DVT prophylaxis - on heparin Kaitlyn Bansal MD Aug 28, 2017 10:23
--- NOTE | 2017-08-28 10:23 | MB ---
cc: Deejay Mars MD DATE: 08/28/2017 REASON FOR CONSULTATION: Unstable angina. HISTORY OF PRESENT ILLNESS: The patient is a 62-year-old white female with a history of diabetes, peptic ulcer disease, diverticulitis, hypertension, who was in her usual state of health up until yesterday morning, when at about 5:30 a.m., she developed a severe substernal chest pressure, radiating to her left upper extremity, associated with shortness of breath and nausea without diaphoresis. The chest discomfort lasted about an hour. She denies prior chest discomforts. Since that time, she has had "twinges" of very brief similar chest discomfort here in the hospital. The patient denies dizziness, syncope, near syncope, palpitations, pedal edema, and paroxysmal nocturnal dyspnea. PAST MEDICAL HISTORY: 1. Diabetes. 2. Diverticulitis 06/2016. 3. Peptic ulcer disease. 4. Hypertension. 5. Hyperlipidemia. 6. Hypothyroidism. 7. Hepatitis B. 8. COPD. CARDIAC MEDICATIONS AT HOME: 1. Hydralazine 50 mg b.i.d. 2. Lipitor 20 mg at bedtime. 3. Metoprolol tartrate 50 mg b.i.d. 4. Lopid 600 mg b.i.d. PAST SURGICAL HISTORY: 1. Hysterectomy. 2. Carpal tunnel syndrome. ALLERGIES: CIPROFLOXACIN, SULFA, PIPERACILLIN, SULFAMETHOXAZOLE, TAZOBACTAM. FAMILY HISTORY: There is no significant family history of early myocardial infarction. SOCIAL HISTORY: The patient smokes about a pack of cigarettes per day. There is no history of alcohol abuse. REVIEW OF SYSTEMS: As in history of present illness, otherwise negative or noncontributory. She also denies abdominal pain, melena, dyspepsia, bright red blood per rectum. At this time, she does have a mild headache. PHYSICAL EXAMINATION: VITAL SIGNS: Blood pressure 131/80 with a pulse of 70, respirations 20. GENERAL: She is a well-developed, well-nourished white female, in no acute distress. NECK: Jugular venous pressure is normal. Carotid pulses are 2+ bilaterally and without bruits. CHEST: Reveals clear lungs marvin. CARDIAC: She has a regular rhythm and rate without S3, S4 or murmurs. ABDOMEN: She has a soft, obese, nontender abdomen. Bowel sounds are present. There is no definite hepatosplenomegaly EXTREMITIES: No clubbing, cyanosis or edema. Peripheral pulses are normal throughout. LABORATORY DATA: WBC 8.6, hemoglobin 15.7, platelets 334. Potassium 3.9, BUN 10, creatinine 0.89. Troponin 1.34. IMAGING STUDIES: Chest x-ray shows no acute disease. EKG from 08/27/2017 at 8:01 a.m. shows sinus tachycardia, premature atrial complexes, inferior ST elevation, cannot rule out ST elevation myocardial infarction. EKG from 9:06 p.m. yesterday shows sinus rhythm, nonspecific ST abnormalities. IMPRESSION: Acute myocardial infarction in this 62-year-old white female with a history of diabetes, hypertension, hyperlipidemia, chronic obstructive pulmonary disease, and diverticulitis. Since coming into the hospital, she has had intermittent recurrent twinges of chest discomfort. At this time, she is chest pain free. There is no evidence for congestive heart failure or arrhythmias so far. Troponin levels are suggestive of acute myocardial infarction. Her initial EKG actually does show minor ST elevation in the inferior leads suggesting acute injury. These changes have since resolved. Because of the instability of her symptoms, she has been recommended cardiac catheterization with possible percutaneous coronary intervention, the risks of which have been explained to her, including, but not limited to , myocardial infarction, stroke, arrhythmia, bleeding, infection, and renal failure. She agrees to proceed. RECOMMENDATIONS: 1. Cardiac catheterization tomorrow. 2. Check a fasting lipid profile. 3. Beta florentin and JONE inhibitor therapy. MD CLAUDE Abel/RASHMI , 09:59 AM , 10:21 AM ANGELES
[2017-08-28 10:26] LABS: AUTOMATED NEUTROPHIL # 6.6 TH/MM3 (1.8-7.7); BASOPHIL # 0.1 TH/MM3 (0-0.2); BASOPHIL % 0.9 % (0.0-2.0); EOSINOPHIL # 0.3 TH/MM3 (0-0.4); EOSINOPHIL % 3.2 % (0.0-4.0); HEMATOCRIT 39.8 % (35.0-46.0); HEMOGLOBIN 13.4 GM/DL (11.6-15.3); LYMPH % 18.7 % (9.0-44.0); LYMPHOCYTE # 1.8 TH/MM3 (1.0-4.8); MEAN CELL VOLUME 94.6 FL (80.0-100.0); MEAN CORPUSCULAR HEMOGLOBIN 31.8 PG (27.0-34.0); MEAN CORPUSCULAR HGB CONC 33.7 % (32.0-36.0); MONO % 6.6 % (0.0-8.0); MONOCYTE # 0.6 TH/MM3 (0-0.9); NEUT % 70.6 % (16.0-70.0); PLATELET COUNT 268 TH/MM3 (150-450); RED BLOOD COUNT 4.21 MIL/MM3 (4.00-5.30); RED CELL DISTRIBUTION WIDTH 13.3 % (11.6-17.2); WHITE BLOOD COUNT 9.4 TH/MM3 (4.0-11.0)
[2017-08-28 10:34] LABS: ALT (GPT) 41 U/L (10-53)
[2017-08-28 10:35] LABS: ALKALINE PHOSPHATASE 89 U/L (45-117); TOTAL BILIRUBIN ADULT 0.3 MG/DL (0.2-1.0)
[2017-08-28 10:37] LABS: ALBUMIN 2.5 GM/DL (3.4-5.0); AST (GOT) 60 U/L (15-37); BICARBONATE 20.5 MEQ/L (21.0-32.0); BLOOD UREA NITROGEN 14 MG/DL (7-18); CALCIUM 8.9 MG/DL (8.5-10.1); CHLORIDE 106 MEQ/L (98-107); CREATININE 0.96 MG/DL (0.50-1.00); GLOMERULAR FILTRATION RATE 59 ML/MIN (>89); GLUCOSE,RANDOM 163 MG/DL (74-106); SODIUM (NA) 138 MEQ/L (136-145)
[2017-08-28] MEDS: SODIUM CHLOR 0.9% 1000 ML INJ 1,000 ML IV SCH ×3 (10:46→21:35)
[2017-08-28] MEDS: GABAPENTIN 300 MG CAP PO SCH ×3 (10:50→18:01)
[2017-08-28] MEDS: ENALAPRIL MALEATE 5 MG TAB PO SCH (10:50)
[2017-08-28 11:28] LABS: CHOLESTEROL 345 MG/DL (120-200); TRIGLYCERIDES 531 MG/DL (42-150)
[2017-08-28 11:30] LABS: HDL CHOLESTEROL 36.3 MG/DL (40.0-60.0)
--- NOTE | 2017-08-28 13:25 | EKG ---
Date Performed: 08/27/2017 Time Performed: 08:01:17 PTAGE: 62 years EKG: SINUS TACHYCARDIA WITH OCCASIONAL SUPRAVENTRICULAR PREMATURE COMPLEXES MODERATE ST DEPRESSI ON ABNORMAL ECG PREVIOUS TRACING 06/14/2016 Rate has increased since prior tracing with nonspecific ST-T wave ch anges. DOCTOR: Romel Wren Interpretating Date/Time 08/28/2017 13:23:29
--- NOTE | 2017-08-28 13:25 | EKG ---
Date Performed: 08/27/2017 Time Performed: 08:45:35 PTAGE: 62 years EKG: ATRIAL FIBRILLATION NONSPECIFIC ST & T-WAVE ABNORMALITY ABNORMAL RHYTHM ECG PREVIOUS TRACING : 06/14/2016 10.11 Atrial fibrillation appears to be new since prior tracing. DOCTOR: Romel Wren Interpretating Date/Time 08/28/2017 13:23:43
--- NOTE | 2017-08-28 13:25 | EKG ---
Date Performed: 08/27/2017 Time Performed: 14:46:22 PTAGE: 62 years EKG: Sinus arrhythmia. Poor R wave progression - probable normal variant Borderline ECG PREVIOUS TRACING : 08/27/2017 08.45 Sinus rhythm returns since prior tracing. DOCTOR: Romel Wren Interpretating Date/Time 08/28/2017 13:24:09
--- NOTE | 2017-08-28 13:26 | EKG ---
Date Performed: 08/27/2017 Time Performed: 19:27:54 PTAGE: 62 years EKG: Sinus rhythm with PAC(s) Possible inferior infarct - age undetermined Abnormal ECG PREVIOUS TRACING 08/27/17 Q-waves now noted in lead III and aVF. Possible inferior infarct. DOCTOR: Romel Wren Interpretating Date/Time 08/28/2017 13:25:02
--- NOTE | 2017-08-28 13:26 | EKG ---
Date Performed: 08/27/2017 Time Performed: 21:06:40 PTAGE: 62 years EKG: Sinus rhythm WITH OCCASIONAL SUPRAVENTRICULAR PREMATURE COMPLEXES POSSIBLE INFERIOR MYOCARDIAL INFARCTION , PROBA SAMANTHA OLD BORDERLINE ECG PREVIOUS TRACING : 08/27/2017 14.46 Q-wave in lead III is more prominent. DOCTOR: Romel Wren Interpretating Date/Time 08/28/2017 13:24:32
[2017-08-28] MEDS: ATORVASTATIN 20 MG TAB PO SCH (20:53)
[2017-08-29] VITALS (13 sets, daily range): BP systolic 104–157; BP diastolic 55–87; PULSE 62–86; RESP 16–22; TEMP 97.5–98.2; O2SAT 91–96
[2017-08-29] MEDS: MORPHINE SULFATE 4 MG/ML INJ IV PUSH PRN ×3 (01:17→17:09)
[2017-08-29] MEDS: GEMFIBROZIL 600 MG TAB PO SCH ×2 (05:48→17:08)
[2017-08-29] MEDS: LEVOTHYROXINE SODIUM 25 MCG TAB PO SCH (05:48)
[2017-08-29] MEDS: NITROGLYCERIN 2% OINT 1 GM PACKET TOPICAL SCH ×3 (05:50→18:49)
[2017-08-29] MEDS: SODIUM CHLOR 0.9% 1000 ML INJ 1,000 ML IV SCH ×3 (07:14→17:09)
[2017-08-29] MEDS: INSULIN ASPART SUPPLEMENTAL SCALE SQ SCH ×4 (08:00→21:00)
[2017-08-29] MEDS ORDERED: HEPARIN-NS/PF INJ 1,500 ML ONE (08:28)
--- NOTE | 2017-08-29 08:34 | HHI.PR ---
Subjective Remarks had a good night- no chest pain or shortness of breath Objective Vitals Vital Signs Date Time Temp Pulse Resp B/P (MAP) Pulse Ox O2 Delivery O2 Flow Rate FiO2 08/29/17 04:00 97.5 70 18 112/74 (87) 94 08/29/17 03:43 69 08/29/17 00:00 98.2 71 18 104/55 (71) 93 08/28/17 23:43 69 08/28/17 20:00 Nasal Cannula 2.00 08/28/17 20:00 98.0 80 19 135/73 (93) 96 08/28/17 19:45 85 08/28/17 16:00 98.0 55 22 119/69 (86) 94 08/28/17 16:00 73 08/28/17 12:00 63 08/28/17 12:00 98.1 75 22 124/80 (95) 96 08/28/17 09:40 95 Nasal Cannula 1.00 I/O 08/28/17 08/28/17 08/28/17 08/29/17 08/29/17 08/29/17 07:00 15:00 23:00 07:00 15:00 23:00 Intake Total 120 ml 1360 ml 250 ml 1000 ml Output Total 100 ml Balance 20 ml 1360 ml 250 ml 1000 ml Intake Oral 120 ml 360 ml 0 ml IV Total 1000 ml 250 ml 1000 ml Output Urine Total 100 ml # Voids 4 10 # Bowel Movements 0 0 Result Diagram: 08/28/17 0825 08/28/17 0825 Imaging Last Impressions Chest X-Ray 08/27/17 0804 Signed Impressions: CONCLUSION: No acute cardiopulmonary abnormality is identified. Objective Remarks awake and aler,t, no acute distress anicter lungs- no rales regular rhythm abdomen soft, good bwoel sounds extremities no edema neuro exam- unremarkable A/P Problem List: (1) Chest pain ICD Code: R07.9 - Chest pain, unspecified (2) Elevated troponin ICD Code: R74.8 - Abnormal levels of other serum enzymes Assessment and Plan 62-year-old female admitted secondary to chest pain with elevated troponin NSTEMI History fo CAD, HTN - elevated troponins, 12 Lekg- diffuse flattening, no acute changes - for cardiac cath this am - heparin drip, ASA, BB, nitrates, JONE General anxiety disorder Depression PTSD - continue home meds Diabetes mellitus type 2 DM neuropathy Follow blood sugars- states good hypoglycemic awareness Insulin sliding scale for now Diabetic diet, chekc A1C- pending On Gabapentin to 300 mg po tid - home dose Hyperlipidemia Continue statins/Lopid dietitian consult for counselling Hypothyroidism Continue- synthroid DVT prophylaxis - on heparin DC planning- dpending on cath results Kaitlyn Bansal MD Aug 29, 2017 08:34
[2017-08-29] MEDS: FOLIC ACID 1 MG TAB PO SCH (08:35)
[2017-08-29] MEDS: ENALAPRIL MALEATE 5 MG TAB PO SCH (08:35)
[2017-08-29] MEDS: GABAPENTIN 300 MG CAP PO SCH ×3 (08:35→18:49)
[2017-08-29] MEDS: PANTOPRAZOLE SOD 20 MG DELAYED RELEASE TAB PO SCH (08:35)
[2017-08-29] MEDS: METOPROLOL TARTRATE 50 MG TAB PO SCH ×2 (08:35→21:32)
[2017-08-29] MEDS: busPIRone HCL 10 MG TAB PO SCH ×2 (08:36→22:23)
[2017-08-29] MEDS: DULoxetine HCl DR 60 MG CAP PO SCH (08:36)
[2017-08-29] MEDS: SODIUM CHLORIDE 0.9% FLUSH 10 ML FLUSH IV FLUSH SCH ×2 (08:36→21:00)
[2017-08-29] MEDS ORDERED: MIDAZOLAM HCL 2 MG/2 ML VIAL ONE (08:44)
[2017-08-29] MEDS ORDERED: VERAPAMIL HCL 5 MG/2 ML VIAL ONE (08:51)
[2017-08-29] MEDS ORDERED: NITROGLYCERIN INJ 5 ML ONE (08:51)
[2017-08-29] MEDS ORDERED: HEPARIN SODIUM - IV 10,000 UNITS/10 ML VIAL ONE (08:51)
[2017-08-29] MEDS ORDERED: ASPIRIN 325 MG TAB PO SCH (09:00)
[2017-08-29] MEDS ORDERED: CANGRELOR TETRASODIUM 50,000 MCG VIAL ONE (09:43)
[2017-08-29] MEDS ORDERED: TICAGRELOR 90 MG TAB PO ONE (09:57)
[2017-08-29] MEDS ORDERED: SODIUM CHLOR 0.9% 1000 ML INJ 1,000 ML IV SCH (10:37)
[2017-08-29] MEDS ORDERED: MISC INFORMATION XX ONE (10:45)
--- NOTE | 2017-08-29 10:46 | CATHPROC ---
[employer] HIS Report Study Information Study Number Admission Scheduled Start Study Start [id number] Aug 27 2017 10:11AM 08/28/2017 Aug 29 2017 8:47AM [place] [facility] Cardiac Catheterization Admit Source Facility Department Other [facility] [employer] Supervisor Physician and Clinical Staff Initial Deejay May Nylon Mender Kavita Akhtar,DELMY Nylon Mender Aftab BROCK, Piyush Other cathlab, cathlab Recorder Yancy Goodwin,TABULATING SUPERVISOR TECH2 Scrub Halle Caldwell ,RT(R) Procedures Performed Procedure Location (Site) Vessel Name Coronary Angiograms LCA Left Coronary Coronary Angiograms RCA Right Coronary Drug Eluting Inflatio RCA Dist Right Coronary Drug Eluting Inflatio RCA Ost Right Coronary Drug Eluting Inflatio RCA Prox Right Coronary L Heart Cath LV Gram-hand inj. LV LV Ventricle PTCA RCA Dist Right Coronary PTCA RCA Prox Right Coronary PTCA ADD ON'S Wire insertion Fem Art (right) Femoral Art Wire insertion Radial (right) Radial Art. Equipment Time Warehouse Packaging Supervisor Description Size Mfg Part Number Used/Scraped [id number] 09:42 [employer] WIRE, ASAWallStrip PROWATER 180CM 180CM Used *[id number] TRANSDUCER, TRUWAVE [id number] 08:57 CHIN BURGOS * Used W/STOCKCOCK *[id number] *[id number] *[id number] 08:57 MALLINCKRODT SYRINGE, ANGIOMAT 150ML 150ML *[id number] Used 2SUB MEDICAL CONCEPT DRAPE, RADIAL FEMORAL FULL 08:57 * [id number] *[id number] Used DEVELOPMENT BODY [id number] 08:57 [employer]ItRideIt BLANKET,WARM AIR CCL * Used *[id number] 08:57 [employer] PACK, CCL CUSTOM * Used *[id number] 08:57 [employer]It SUPPORT, ARTERIAL ADULT 56525 *[id number] Used [id number] 08:57 MEDLINE PACER PEN, SKIN DUAL W/ RULER * Used *[id number] 09:47 MEDTRONIC BALLOON, 2.5 X 15MM EUPHORA 15MM Used *[id number] BALLOON, 3.5 X 15MM NC [id number] 10:06 MEDTRONIC 15MM Used EUPHORA *[id number] 09:34 MEDTRONIC JR 5.0 DXTERITY CATHETER fr 5 [id number] Used [id number] 09:52 MEDTRONIC STENT, 3.0 18MM JAMI 3.0 18MM Used *[id number] [id number] 10:03 MEDTRONIC STENT, 3.0 18MM JAMI 3.0 18MM Used *[id number] [id number] 09:55 MEDTRONIC STENT, 3.0 22MM JAMI 3.0 22MM Used *[id number] 10:16 MEDTRONIC STENT, 3.5 8MM JAMI 3.5 8MM Used *3769035 [id number] 09:42 [facility] 30 DAO INDEFLATOR Used *[id number] BAND, RADIAL COMPRESSION TR [id number] 10:22 [employer] MEDICAL 24CM Used SHORT 24 *[id number] SHEATH, FR6 RADIAL PRELUDE 08:57 [facility] FR 6 [id number] Used EASE 11CM [id number] 08:57 [facility] WIRE, EXCHANGE 260CM 3MMJ 260CM Used *[id number] 08:57 NAMIC MANIFOLD, 4 PORT * Used *[id number] 08:57 NYCOMED OMNIPAQUE, 350 MG, 150ML 150ML [id number] Used 09:42 NYCOMED OMNIPAQUE, 350 MG, 150ML 150ML [id number] Used 09:42 NYCOMED OMNIPAQUE, 350 MG, 150ML 150ML [id number] Used 09:42 NYCOMED OMNIPAQUE, 350 MG, 50ML 50ML [id number] Used CATHETER, FR5 OPTITORQUE [id number] 09:38 [employer] FR 5 Used GERARD RADIAL *[id number] CATHETER, FR5 OPTITORQUE [id number] 09:12 [employer] FR 5 Used RADIAL TIG 4.0 *[id number] Equipment Model, Serial, Lot Number and Expiration Data Description Model Number Serial Number Lot Number Expiration Date JR 5.0 DXTERITY CATHETER [id number] 10-15-2019 STENT, 3.0 18MM JAMI [id number] 05-07-2019 STENT, 3.0 18MM JAMI [id number] 05-17-2019 STENT, 3.0 22MM JAMI [id number] 04-11-2019 STENT, 3.5 8MM JAMI [id number] 12-29-2018 History: Current Medications Medication Dosage/Unit Route Frequency Last Date/Time Taken LIPITOR Neurontin Insulin Glypizide History: Allergies Allergy Reaction sulfamethoxazole Rash trimethoprim ciprofloxacin Flushing, red raised rash tazobactam Rash nalbuphine piperacillin Rash History: Risk Factors Family History of Hypertension Dyslipidemia Previous [place] Previous Heart Failure Premature CAD Yes Yes Yes No No Prior Valve Prior PCI Prior CABG Surgery No No No Cerebrovascular Peripheral Artery Chronic Lung On Dialysis Diabetes Diabetes Therapy Disease Disease Disease No No No Yes Yes Insulin History: Symptoms/Diagnosis Selection Items Chest pain History: Other Current Smoker Method Packs a Day Years Used Pack Years Yes Cigarettes 1 20 20 Labs Hgb (g/dl) Hct (%) WBC (l/cumm) Platelets (thousands) 11.60-17.00 35.00-51.00 4.00-11.00 150.00-450.00 13.4 39.8 9.4 268 Glucose (mg/dl) BUN (mg/dl) Creatinine (mg/dl) BUN:Creatinine (1:x) 74.00-106.00 7.00-18.00 0.50-1.30 10.00-20.00 163 14 0.9 15.6 Na (meq/l) K (meq/l) 136.00-145.00 3.50-5.10 138 3.9 Troponin I (ng/ml) 0.02-0.05 0.4 Medication Medication Total Dose (Bolus/Oral) Medication Total Dosage/Unit 1% XYLOCAINE 5 mL BRILINTA 180 mg FENTANYL 100 mcg HEPARIN 6300 units OXYGEN 2 l/min RADIAL COCKTAIL 0 mL (Bolus) VERSED 2 mg Medications (Bolus/Oral) Medication Time Given Dosage/Unit Administered By Reason VERSED 08/29/2017 9:19:14 AM 2 mg Kavita Akhtar 2 mg VERSED given in lab by Kavita Akhtar, RN in Right Forearm via Peripheral IV. Ordered by Deejay Mars. FENTANYL 08/29/2017 9:19:27 AM 50 mcg Kavita Akhtar 50 mcg FENTANYL given in lab by Kavita Akhtar, RN in Right Forearm via Peripheral IV. Ordered by Deejay Roberts. 1% XYLOCAINE 08/29/2017 9:19:40 AM 5 mL Deejay Mars 5 mL 1% XYLOCAINE given in lab by Deejay Mars in Right Radial via Subcutaneous. Ordered by Daniel Mars enn. OXYGEN 08/29/2017 9:21:40 AM 2 l/min Kavita Akhtar 2 l/min OXYGEN given in lab by Kavita Akhtar RN via Nasal. Ordered by Deejay Mars. RADIAL COCKTAIL 08/29/2017 9:27:00 AM 0 mL (Bolus) Deejay Mars 0 mL (Bolus) RADIAL COCKTAIL given in lab by Deejay Mars in Right Radial via Radial. Using [Solution Name]. Ordered by Deejay Mars. 2.5 verapamil and 200 nitro HEPARIN 08/29/2017 9:42:42 AM 6300 units Kavita Akhtar 6300 units HEPARIN given in lab by Kavita Akhtar RN in Right Forearm via Peripheral IV. Ordered by Deejay Mars. FENTANYL 08/29/2017 10:19:36 AM 50 mcg Kavita Akhtar 50 mcg FENTANYL given in lab by Kavita Akhtar RN in Right Forearm via Peripheral IV. Ordered by Deejay Roberts. BRILINTA 08/29/2017 10:28:04 AM 180 mg Kavita Akhtar 180 mg BRILINTA given in lab by Kavita Akhtar RN via Oral. Ordered by Deejay Mars. Medication (Drip) Medication Time Given Dosage/Unit Concentration/Unit Diluent (ml) Solution IV Bolus 08/29/2017 9:49:28 AM 500 mL (Bolus) 1000 NaCl .9 500 mL (Bolus) IV Bolus given in lab by Kavita Akhtar RN in Right Forearm via Peripheral IV. Using NaCl .9. Ordered by Deejay Mars. IV Solutions 08/29/2017 8:49:53 AM 0 mL (IV) 1000 NaCl .9 Patient arrived on IV Solutions given by Deejay Mars in Right Forearm via Peripheral IV. Pump/Drip F low = 20 ml/hr using NaCl .9. Ordered by Deejay Mars. KENGREAL BOLUS 08/29/2017 9:46:28 AM 16 mL 16 mL KENGREAL BOLUS given in lab by Kavita Akhtar, DELMY in Right Forearm via Peripheral IV. Ordered by Deejay Mars. KENGREAL DRIP 08/29/2017 9:49:31 AM 4 mcg/kg/min 50 mg 250 NaCl .9 4 mcg/kg/min KENGREAL DRIP given in lab by Kavita Akhtar RN via Peripheral IV. Pump/Drip Flow = 12 2.52 ml/hr using NaCl .9 with a concentration of 50 mg in 250 ml. Ordered by Deejay Mars. Initial Case Assessment Cardiovascular HR NIBP 72 128/85 Edema Present Skin color Skin None Normal Warm Dry Circulatory - Right Pulses Dorsalis Pedis Femoral Radial 1 2 2 Scale (0,1,2,3,4,d) Circulatory - Left Pulses Dorsalis Pedis Femoral Radial 1 2 Scale (0,1,2,3,4,d) Neurological State Oriented to time-place- Alert Moves all extremities person Respiration - General Respiration Rate SpO2 (%) (B/min) 15 93 Final Case Assessment Cardiovascular HR NIBP 72 173/93 Edema Present Skin color Skin None Normal Warm Dry Circulatory - Right Pulses Dorsalis Pedis Femoral Radial 1 2 2 Scale (0,1,2,3,4,d) Circulatory - Left Pulses Dorsalis Pedis Femoral Radial 1 2 Scale (0,1,2,3,4,d) Neurological State Oriented to time-place- Alert Moves all extremities person Respiration - General Respiration Rate SpO2 (%) (B/min) 13 97 Chronological Log Time Study Chronological Log 8:48:44 Patient arrived via Bed. 8:48:45 Patient Name, D.O.B, / Armband Verified By R.N. 8:48:46 Consent signed by the physician and the patient and verified by the [employer] Supervisor staff. 8:48:50 Allens test performed on the right radial and ulnar artery. 8:48:53 Patient has been NPO for Less than 6Hrs. 8:48:55 Skin Breakdown- 8:49:48 Patient Warmer Placed on the Table. 8:49:49 Thien Prominences Protected 8:49:52 A # 20 IV was noted in the Forearm (right). Grade = 0 Patient arrived on IV Solutions given by Deejay Mars in Right Forearm via Peripheral IV. Pump/ Drip Flow = 20 ml/hr 8:49:53 using NaCl .9. Ordered by Deejay Mars. 8:49:54 History and physical on the chart or being dictated. Vitals capture started with the following parameters, Patient=Adult, Interval=5 min, Initial Pr tuzzvx=776 mmHg, 8:56:20 Deflation Rate=5 mmHg, Cuff placed on Left Arm 8:56:58 HR=72 bpm, ZNIU=067/85 mmhg, SpO2=93.0 %, Resp=15 B/min, Pain=0, Maverick=10, Velasquez=2 8:58:18 Reference ECG taken Assessment: Initial Case, HR=72 BPM, SGEB=339/85 mmhg, Edema=None, Color=Normal, Skin = Warm, D ry Right Pulses: Sukumar Ped=1, Femoral=2, Radial=2 8:59:17 Left Pulses: Sukumar Ped=1, Femoral=2 Neurological: State=Alert, Ox3, SALMERON Respiration: Resp=15 B/min, SpO2=93 % 9:01:55 HR=72 bpm, ALTM=335/84 mmhg, SpO2=92.0 %, Resp=15 B/min, Pain=0, Maverick=10, Velasquez=2 9:04:36 heparin drip discontiued at 0835 per Kavita Akhtar 9:07:35 HR=83 bpm, TEJY=133/92 mmhg, SpO2=94.0 %, Resp=11 B/min, Pain=0, Maverick=10, Velasquez=2 9:09:14 Bilateral groins prepped with 2% chlorhexidine, and draped after a 3 minute waiting time. 9:11:59 HR=71 bpm, UXLT=915/87 mmhg, SpO2=93 %, Resp=13 B/min, Pain=0, Maverick=10, Velasquez=2 9:16:03 Pressure channel 1 zeroed. 9:16:58 HR=71 bpm, MAYK=762/76 mmhg, SpO2=91.0 %, Resp=14 B/min Time Out. Correct patient, correct procedure, correct physician, labs, allergies, and equipment verified with dental laboratory manager 9:18:42 team present. Fire risk assesment completed (see hard stop sheet for coding). Time Out Concu rred by MD and individual staff in procedure. 9:19:10 Case Start 9:19:14 2 mg VERSED given in lab by Kavita Akhtar RN in Right Forearm via Peripheral IV. Ordered by Deejay Mars. 9:19:27 50 mcg FENTANYL given in lab by Kavita Akhtar, RN in Right Forearm via Peripheral IV. Orde red by Deejay Mars. 9:19:40 5 mL 1% XYLOCAINE given in lab by Deejay Mars in Right Radial via Subcutaneous. Ordered by Deejay Mars. 9:21:40 2 l/min OXYGEN given in lab by Kavita Akhtar, RN via Nasal. Ordered by Deejay Mars. 9:21:57 HR=74 bpm, QXFE=178/73 mmhg, SpO2=92 %, Resp=14 B/min, Pain=0, Maverick=10, Velasquez=2 9:26:12 Access site was Radial Artery. A SHEATH, FR6 RADIAL PRELUDE EASE 11CM FR 6 was advanced into the Radial (right) using the Modif ied Seldinger 9:26:32 technique. 9:27:00 HR=72 bpm, CRYO=038/70 mmhg, SpO2=94.0 %, Resp=14 B/min, Pain=0, Maverick=10, Velasquez=2 0 mL (Bolus) RADIAL COCKTAIL given in lab by Deejay Mars in Right Radial via Radial. Using [Monica ution Name]. Ordered 9:27:00 by Deejay Mars. 2.5 verapamil and 200 nitro 9:27:56 Activated Clotting Time Drawn A CATHETER, FR5 OPTITORQUE RADIAL TIG 4.0 FR 5 was advanced over a wire. OMNIPAQUE, 350 MG, 150M L 150ML 9:28:05 was used for injections. 9:29:01 The LCA was injected and visualized at various angles. OMNIPAQUE, 350 MG, 150ML 150ML used. Recorded Pressure: Ao, HR=70, Condition=Condition 1 9:29:10 (Aorta) Ao 107/72/88 9:30:21 ACT (Normal Range 90-180) = 155 9:32:01 HR=61 bpm, STCP=107/54 mmhg, SpO2=93 %, Resp=12 B/min, Pain=0, Maverick=10, Velasquez=2 After removing the current catheter a JR 5.0 DXTERITY CATHETER fr 5 was advanced over a WIRE, EX CHANGE 260CM 9:33:45 3MMJ 260CM. 9:36:56 HR=75 bpm, NIBP=93/62 mmhg, SpO2=96 %, Resp=13 B/min, Pain=0, Maverick=10, Velasquez=2 After removing the current catheter a CATHETER, FR5 OPTITORQUE GERARD RADIAL FR 5 was advanced ov er a WIRE, 9:36:56 EXCHANGE 260CM 3MMJ 260CM. 9:39:02 The RCA was injected and visualized at various angles. OMNIPAQUE, 350 MG, 150ML 150ML used. After removing the current catheter a AR 2 SH GUIDE CATHETER FR 6 was advanced over a WIRE, EXCH PAULINE 260CM 9:40:28 3MMJ 260CM. 9:41:55 HR=60 bpm, NIBP=99/63 mmhg, SpO2=94.0 %, Resp=10 B/min, Pain=0, Maverick=10, Velasquez=2 9:42:16 OMNIPAQUE, 350 MG, 50ML 50ML and 30 DAO INDEFLATOR added. 9:42:42 6300 units HEPARIN given in lab by Kavita Akhtar RN in Right Forearm via Peripheral IV. O rdered by Deejay Mars. 9:44:57 A WIRE, ASAHI PROWATER 180CM 180CM was inserted via Radial (right). 16 mL KENGREAL BOLUS given in lab by Kavita Akhtar RN in Right Forearm via Peripheral IV. Ord ered by Madisyn 9:46:28 Deejay. 9:46:54 HR=60 bpm, FYIS=817/68 mmhg, SpO2=96 %, Resp=10 B/min, Pain=0, Maverick=10, Velasquez=2 9:47:00 Interventional wire has crossed the lesion 9:48:43 A BALLOON, 2.5 X 15MM EUPHORA 15MM was inserted over WIRE, EXCHANGE 260CM 3MMJ 260CM via the RCA Prox. A BALLOON, 2.5 X 15MM EUPHORA 15MM over a WIRE, ASAHI PROWATER 180CM 180CM in the RCA Prox was inflated 9:49:08 using a 30 DAO INDEFLATOR at 13 dao for 30 sec. 500 mL (Bolus) IV Bolus given in lab by Kavita Akhtar, DELMY in Right Forearm via Peripheral IV. Using NaCl .9. Ordered 9:49:28 by Deejay Mars. 4 mcg/kg/min KENGREAL DRIP given in lab by Kavita Akhtar, RN via Peripheral IV. Pump/Drip Dayo w = 122.52 ml/hr 9:49:31 using NaCl .9 with a concentration of 50 mg in 250 ml. Ordered by Deejay Mars. A BALLOON, 2.5 X 15MM EUPHORA 15MM over a WIRE, ASAHI PROWATER 180CM 180CM in the RCA Prox was inflated 9:50:04 using a 30 DAO INDEFLATOR at 13 dao for 30 sec. A BALLOON, 2.5 X 15MM EUPHORA 15MM over a WIRE, ASAHI PROWATER 180CM 180CM in the RCA Dist was inflated 9:50:43 using a 30 DAO INDEFLATOR at 13 dao for 30 sec. 9:51:58 HR=62 bpm, BHWY=267/64 mmhg, SpO2=96 %, Resp=16 B/min, Pain=0, Maverick=10, Velasquez=2 9:52:04 Balloon Removed. A STENT, 3.0 18MM JAMI 3.0 18MM was advanced through a AR 2 SH GUIDE CATHETER FR 6 over a WIRE, ASATN 9:53:15 PROWATER 180CM 180CM. A STENT, 3.0 18MM JAMI 3.0 18MM was deployed using a 30 DAO INDEFLATOR at 15 atmospheres for 30 seconds in 9:54:04 the RCA Dist. 9:54:54 Delivery device removed A STENT, 3.0 22MM JAMI 3.0 22MM was advanced through a AR 2 SH GUIDE CATHETER FR 6 over a WIRE, ASATN 9:56:49 PROWATER 180CM 180CM. 9:56:59 HR=62 bpm, CITX=089/75 mmhg, SpO2=96 %, Resp=12 B/min, Pain=0, Maverick=10, Velasquez=2 A STENT, 3.0 22MM JAMI 3.0 22MM was deployed using a 30 DAO INDEFLATOR at 17 atmospheres for 30 seconds in 9:57:51 the RCA Prox. 9:59:06 Delivery device removed 10:02:00 HR=62 bpm, GDQQ=632/76 mmhg, SpO2=99.0 %, Resp=19 B/min, Pain=0, Maverick=10, Velasquez=2 A STENT, 3.0 18MM JAMI 3.0 18MM was advanced through a AR 2 SH GUIDE CATHETER FR 6 over a WIRE, ASAHI 10:04:38 PROWATER 180CM 180CM. A STENT, 3.0 18MM JAMI 3.0 18MM was deployed using a 30 DAO INDEFLATOR at 17 atmospheres for 30 seconds in ::52 the RCA Ost. :06:52 Delivery device removed 10:07:03 HR=61 bpm, DSLK=184/86 mmhg, SpO2=93.0 %, Resp=14 B/min, Pain=0, Maverick=10, Velasquez=2 A BALLOON, 3.5 X 15MM NC EUPHORA 15MM was inserted over WIRE, ASAHI PROWATER 180CM 180CM via th e RCA 10:11:38 Prox. A BALLOON, 3.5 X 15MM NC EUPHORA 15MM over a WIRE, ASAHI PROWATER 180CM 180CM in the RCA Prox w as 10:11:46 inflated using a 30 DAO INDEFLATOR at 18 dao for 30 sec. 10:12:02 HR=55 bpm, GZNI=951/90 mmhg, SpO2=98.0 %, Resp=15 B/min, Pain=0, Maverick=10, Velasquez=2 A BALLOON, 3.5 X 15MM NC EUPHORA 15MM over a WIRE, ASAHI PROWATER 180CM 180CM in the RCA Prox w as 10:12:03 inflated using a 30 DAO INDEFLATOR at 18 dao for 30 sec. 10:13:04 Balloon Removed. A STENT, 3.5 8MM JAMI 3.5 8MM was advanced through a AR 2 SH GUIDE CATHETER FR 6 over a WIRE, A INGE 10:16:55 PROWATER 180CM 180CM. 10:17:03 HR=75 bpm, UUGE=096/103 mmhg, SpO2=99.0 %, Resp=13 B/min, Pain=0, Maverick=10, Velasquez=2 A STENT, 3.5 8MM JAMI 3.5 8MM was deployed using a 30 DAO INDEFLATOR at 17 atmospheres for 35 s econds in the 10:19:03 RCA Ost. 10:19:36 50 mcg FENTANYL given in lab by Kavita Akhtar RN in Right Forearm via Peripheral IV. Ord ered by Deejay Mars. 10:20:00 Delivery device removed After removing the current catheter a AR 2 SH GUIDE CATHETER FR 6 was advanced over a WIRE, EXC HANGE 260CM 10:21:30 3MMJ 260CM. 10:22:06 HR=62 bpm, BHTL=519/100 mmhg, SpO2=97.0 %, Resp=15 B/min, Pain=0, Maverick=10, Velasquez=2 Recorded Pressure: LV, HR=71, Condition=Condition 1 10:22:51 (Left Ventricle) LV 170/20/28 10:23:00 The LV was manually injected with 10 cc's and visualized. OMNIPAQUE, 350 MG, 150ML 150ML us ed. Recorded Pressure: LV, Ao, HR=66, Condition=Condition 1 10:23:08 (Left Ventricle) LV 153/3/30, (Aorta) Ao 162/97/124 10:24:37 A WIRE, EXCHANGE 260CM 3MMJ 260CM was inserted via Fem Art (right). 10:24:44 Catheter was removed 10:24:50 Case End (Physician broke scrub) 10:26:07 Catheter(s) removed without difficulty Radial Compression Device Used. 13 mLs of air placed in BAND, RADIAL COMPRESSION TR SHORT 24 2 4CM. Affected 10:26:09 hand 95 % O2 saturation. 10:26:26 No case complications noted. 10:26:28 Cine recording checked. 10:26:33 Bedside Report will be given. 10:27:07 HR=72 bpm, FXMB=536/128 mmhg, SpO2=96.0 %, Resp=15 B/min, Pain=0, Maverick=10, Velasquez=2 10:27:26 Implantable Device card placed in patient's chart. 10:27:45 A Left Heart Cath was performed. 10:28:04 180 mg BRILINTA given in lab by Kavita Akhtar, DELMY via Oral. Ordered by Deejay Mars. 10:32:12 HR=72 bpm, WKPG=980/93 mmhg, SpO2=97.0 %, Resp=13 B/min, Pain=0, Maverick=10, Velasquez=2 10:32:31 Vitals capture stopped. Assessment: Final Case, HR=72 BPM, SPZO=056/93 mmhg, Edema=None, Color=Normal, Skin = Warm, Dr y Right Pulses: Sukumar Ped=1, Femoral=2, Radial=2 10:32:34 Left Pulses: Sukumar Ped=1, Femoral=2 Neurological: State=Alert, Ox3, SALMERON Respiration: Resp=13 B/min, SpO2=97 % 10:39:30 Patient moved to stretcher End Study - Contrast Media Used In Study Contrast Total Opened (mL) Total Used (mL) Total Wasted (mL) Omnipaque 195 195 0 End Study - Maximum Contrast Load Max Contrast Load (mL) 567.2 End Study - Radiation Exposure Fluoro Time (minutes) 18.9 End Study - Patient Disposition Complications Transferred To No Telemetry Bed
[2017-08-29] MEDS ORDERED: CANGRELOR INJ 50,000 MCG in SODIUM CHLOR 0.9% 250 ML INJ 250 ML IV ONE (10:49)
--- NOTE | 2017-08-29 10:56 | MA ---
cc: Deejay Mars MD DATE: 08/29/2017 PROCEDURE: Left heart catheterization, selective coronary angiography, left ventriculography, angioplasty and stent of the distal right coronary, angioplasty and stent of the ostial to proximal right coronary. PROCEDURE NOTES: The patient was brought to the cardiac catheterization laboratory in a fasting state after having signed informed consent. The right radial region was prepped and draped as per policy and anesthetized with 1% lidocaine. Arterial access was obtained via the right radial artery and a 6-Grenadian sheath placed. Coronary arteriography was performed using a [place] catheter to engage the left main and a T[place] catheter to engage the right coronary. Left ventriculography was done using a multipurpose catheter. Percutaneous coronary intervention was done as described below. There were no apparent immediate complications. HEMODYNAMIC DATA: Left ventricle 153 with an end-diastolic pressure of 20. Aorta 162/97 with a mean of 124. There was no significant transvalvular aortic gradient on pullback of the pigtail catheter. CORONARY ARTERIOGRAPHY: The left main is normal. The left anterior descending gives rise to a small diagonal. There are minimal luminal irregularities in the proximal LAD. In the mid-LAD there is up to 50% stenosis fairly diffusely. The distal LAD is normal as is the diagonal. The left circumflex is a relatively small vessel giving rise to large obtuse marginal. There is 30% disease in the mid-obtuse marginal and 20% stenosis proximally. The very proximal left circumflex has 20% stenosis. The right coronary artery is a large, dominant vessel with an ulcerated, irregular 95% stenosis proximally and then a smooth tubular 70% lesion distally. LEFT VENTRICULOGRAPHY: Contrast injection of the left ventricle reveals mild global hypokinesis. Ejection fraction is estimated at 45%. PERCUTANEOUS CORONARY INTERVENTION DESCRIPTION OF PROCEDURE: Cangrelor was given as per protocol. 60 units/kg of heparin was also administered. Using a 6-Grenadian Amplatz right 2.0 guiding catheter with side holes, the ostium of the right coronary artery was re-engaged. Using a 0.014 Prowater guidewire the proximal and distal disease was crossed without difficulty and the tip of the wire positioned distally. Predilation of the proximal and distal disease was done using a 2.5 mm Euphora balloon catheter. Stenting of the distal disease was done using a 3.0 x 18 mm Resolute [place] stent, which was deployed at 16 to 17 atmospheres for 30 seconds. Stenting of the proximal disease was done using a 3.0 x 22 mm Resolute Nasim stent, which was deployed at 18 atmospheres for 30 seconds. Angiography at this point shows more disease evident more proximally and at the ostium, which does not appear to be a pseudolesion from the guidewire. There is also a notch-like lesion very near the ostium, which results in a 70% stenosis. Therefore, it was decided to place another stent. A 3.0 x 18 mm Resolute Nasim stent was deployed slightly overlapping the other stent. At this point, it is evident that the disease at the ostium was not covered by the stent. Therefore, another stent, a 3.5 x 8 mm Resolute Nasim stent was positioned and deployed at the ostium. Post-dilation of the ostial to proximal stents was done using a 3.5 mm Non-Compliant Euphora balloon catheter which was inflated to as high as 18 atmospheres along the length of the stents. Final angiography shows overall good results with reduction of the disease to 0% residual with no definite evidence for dissection or distal embolization. The patient tolerated the procedure well. There were no apparent, immediate complications. CONCLUSIONS: 1. Moderate to severe two-vessel coronary artery disease. 2. Right dominant system. 3. Mildly reduced left ventricular systolic function with ejection fraction estimated at 45%. 4. Status post angioplasty and stent of the distal right coronary and ostial to proximal right coronary with 4 drug eluting stents. MD CLAUDE Abel/NIKOLE , 10:34 AM , 10:54 AM ANGELES
--- NOTE | 2017-08-29 10:56 | PD.CARD.PN ---
Subjective Subjective Remarks Continued "twinges" of CP. Mild dyspnea. No dizziness, palpitations. Objective Medications Item Value Date Time Aspirin 81 mg 08/30/17 0900 (Aspirin Chew) DAILY/PO Ticagrelor 90 mg 08/29/17 2100 (Brilinta) BID/PO Enalapril Maleate 5 mg 08/28/17 1000 (Vasotec) DAILY/PO 08/29/17 0835 Gemfibrozil 600 mg 08/28/17 0700 (Lopid) BIDAC/PO 08/29/17 0548 Nitroglycerin 1 inch 08/28/17 0000 (Nitroglycerin Q6HR/TOPICAL 08/29/17 0550 2% Oint) Atorvastatin 20 mg 08/27/17 2100 Calcium HS/PO 08/28/17 2053 (Lipitor) Metoprolol 50 mg 08/27/17 2100 Tartrate BID/PO 08/29/17 0835 (Lopressor) Current Medications Medications (Trade) Dose Ordered Sig/Tabatha Route Start Time Stop Time Status Last Admin Sodium Chloride 1,000 ml @ 42 mls/hr [id number] IV 08/27/17 11:00 08/27/17 12:22 (NS Flush) 2 ml UNSCH PRN IV FLUSH 08/27/17 10:15 (NS Flush) 2 ml BID IV FLUSH 08/27/17 21:00 08/29/17 08:36 (Zofran Odt) 4 mg Q6H PRN PO 08/27/17 10:15 (Morphine Inj) 2 mg Q3H PRN IV PUSH 08/27/17 10:15 (Morphine Inj) 4 mg Q3H PRN IV PUSH 08/27/17 10:15 08/29/17 01:17 (Narcan Inj) 0.4 mg UNSCH PRN IV PUSH 08/27/17 10:15 (Milk Of Magnesia Liq) 30 ml Q12H PRN PO 08/27/17 10:15 (Tylenol) 500 mg Q6H PRN PO 08/27/17 14:45 08/28/17 05:10 (D50w (Vial) Inj) 50 ml UNSCH PRN IV PUSH 08/27/17 16:00 (Glucagon Inj) 1 mg UNSCH PRN OTHER 08/27/17 16:00 (NovoLOG SUPPLEMENTAL SCALE) 1 ACHS SLIDING SCALE SQ 08/27/17 17:00 08/28/17 20:53 (Lipitor) 20 mg HS PO 08/27/17 21:00 08/28/17 20:53 (Buspar) 10 mg BID PO 08/27/17 21:00 08/29/17 08:36 (Cymbalta Dr) 60 mg DAILY PO 08/28/17 09:00 08/29/17 08:36 (Folate) 1 mg DAILY PO 08/28/17 09:00 08/29/17 08:35 (Lopid) 600 mg BIDAC PO 08/28/17 07:00 08/29/17 05:48 (Synthroid) 25 mcg DAILY@0600 PO 08/28/17 09:00 08/29/17 05:48 (Lopressor) 50 mg BID PO 08/27/17 21:00 08/29/17 08:35 (Protonix) 20 mg DAILY PO 08/28/17 09:00 08/29/17 08:35 (Catapres) 0.1 mg Q6H PRN PO 08/27/17 18:15 08/27/17 18:40 (Aspirin) 325 mg DAILY PO 08/29/17 09:00 08/29/17 08:35 (Nitrostat Sl) 0.4 mg Q5M PRN SL 08/27/17 18:15 (Nitroglycerin 2% Oint) 1 inch Q6HR TOPICAL 08/28/17 00:00 08/29/17 05:50 (Morphine Inj) 5 mg Q3H PRN IV PUSH 08/27/17 23:30 (Neurontin) 300 mg TID PO 08/28/17 10:15 08/29/17 08:35 Sodium Chloride 1,000 ml @ 100 mls/hr Q10H IV 08/28/17 09:59 09/02/17 09:58 08/29/17 07:14 (Benadryl) 50 mg CLOTHING CUTTER PO 08/28/17 10:00 09/01/17 09:59 (Valium) 10 mg CLOTHING CUTTER PO 08/28/17 10:00 09/01/17 09:59 (Versed Inj) 1 mg CLOTHING CUTTER IV PUSH 08/28/17 10:00 09/01/17 09:59 (Vasotec) 5 mg DAILY PO 08/28/17 10:00 08/29/17 08:35 Sodium Chloride 1,000 ml @ 100 mls/hr Q10H IV 08/29/17 10:37 08/29/17 20:36 (Aspirin Chew) 81 mg DAILY PO 08/30/17 09:00 (Brilinta) 90 mg BID PO 08/29/17 21:00 Vital Signs / I&O Vital Signs Date Time Temp Pulse Resp B/P (MAP) Pulse Ox O2 Delivery O2 Flow Rate FiO2 08/29/17 08:00 97.8 62 18 125/73 (90) 96 08/29/17 04:00 97.5 70 18 112/74 (87) 94 08/29/17 03:43 69 08/29/17 00:00 98.2 71 18 104/55 (71) 93 08/28/17 23:43 69 08/28/17 20:00 Nasal Cannula 2.00 08/28/17 20:00 98.0 80 19 135/73 (93) 96 08/28/17 19:45 85 08/28/17 16:00 98.0 55 22 119/69 (86) 94 08/28/17 16:00 73 08/28/17 12:00 63 08/28/17 12:00 98.1 75 22 124/80 (95) 96 I/O 08/28/17 08/28/17 08/28/17 08/29/17 08/29/17 08/29/17 07:00 15:00 23:00 07:00 15:00 23:00 Intake Total 120 ml 1360 ml 250 ml 1000 ml Output Total 100 ml Balance 20 ml 1360 ml 250 ml 1000 ml Intake Oral 120 ml 360 ml 0 ml IV Total 1000 ml 250 ml 1000 ml Output Urine Total 100 ml # Voids 4 10 # Bowel Movements 0 0 Physical Exam GENERAL: Well developed, well nourished. No acute distress. HEENT: Jugular venous pressure is normal. CHEST: Lungs clear to auscultation bilaterally. Unlabored respiratory effort. CARDIAC: Regular rate and rhythm without S3, S4, or murmur. ABDOMEN: Soft, nontender, no hepatosplenomegaly. Bowel sounds present. EXTREMITIES: No clubbing, cyanosis, or edema. Laboratory Laboratory Tests Test 08/28/17 23:39 Activated Partial Thromboplast Time 31.5 SEC Assessment and Plan Problem List: (1) NSTEMI (non-ST elevated myocardial infarction) ICD Codes: I21.4 - Non-ST elevation (NSTEMI) myocardial infarction Status: Acute Plan: Severe proximal and distal RCA disease stented today x 4. EF mildly reduced 45%. REC overnight observation continue beta florentin, JONE-I continue Brilinta, baby aspirin (2) Hyperlipidemia ICD Codes: E78.5 - Hyperlipidemia, unspecified Status: Chronic Plan: Suboptimal lipid profile. Recommend increase atorvastatin to 80 mg qd. Code Status full code Discussed Condition With patient Problem Qualifiers (1) Hyperlipidemia: Qualified Codes: E78.2 - Mixed hyperlipidemia Deejay Mars MD Aug 29, 2017 10:56
[2017-08-29] MEDS ORDERED: IOHEXOL 350 MG/ML 100 ML BTL (for Cath Lab) OTHER ONE (11:40)
[2017-08-29 15:44] LABS: HEMOGLOBIN A1C 8.3 % (4.3-6.0)
[2017-08-29] MEDS ORDERED: ATORVASTATIN 20 MG TAB PO SCH (21:00)
[2017-08-29] MEDS ORDERED: ATORVASTATIN 80 MG TAB PO SCH (21:30)
[2017-08-29] MEDS: TICAGRELOR 90 MG TAB PO SCH (21:31)
[2017-08-30 03:00] VITALS: BP 131/60; PULSE 77; RESP 23; TEMP 97.7; O2SAT 91
[2017-08-30 03:32] LABS: AUTOMATED NEUTROPHIL # 10.6 TH/MM3 (1.8-7.7); BASOPHIL # 0.1 TH/MM3 (0-0.2); BASOPHIL % 0.6 % (0.0-2.0); EOSINOPHIL # 0.3 TH/MM3 (0-0.4); EOSINOPHIL % 2.3 % (0.0-4.0); HEMATOCRIT 38.5 % (35.0-46.0); HEMOGLOBIN 12.7 GM/DL (11.6-15.3); LYMPH % 8.6 % (9.0-44.0); LYMPHOCYTE # 1.1 TH/MM3 (1.0-4.8); MEAN CELL VOLUME 93.1 FL (80.0-100.0); MEAN CORPUSCULAR HEMOGLOBIN 30.8 PG (27.0-34.0); MEAN PLATELET VOLUME 7.5 FL (7.0-11.0); MONO % 2.6 % (0.0-8.0); MONOCYTE # 0.3 TH/MM3 (0-0.9); NEUT % 85.9 % (16.0-70.0); PLATELET COUNT 278 TH/MM3 (150-450); RED BLOOD COUNT 4.14 MIL/MM3 (4.00-5.30); RED CELL DISTRIBUTION WIDTH 13.6 % (11.6-17.2); WHITE BLOOD COUNT 12.4 TH/MM3 (4.0-11.0)
[2017-08-30 04:00] LABS: CALCIUM 8.6 MG/DL (8.5-10.1); CREATININE 0.94 MG/DL (0.50-1.00)
[2017-08-30 04:02] LABS: CHOLESTEROL/ HDL RATIO 7.37 RATIO; HDL CHOLESTEROL 43.1 MG/DL (40.0-60.0)
[2017-08-30 06:00] VITALS: PULSE 69
[2017-08-30] MEDS: NITROGLYCERIN 2% OINT 1 GM PACKET TOPICAL SCH ×2 (06:00)
[2017-08-30] MEDS: LEVOTHYROXINE SODIUM 25 MCG TAB PO SCH (06:00)
[2017-08-30] MEDS: GEMFIBROZIL 600 MG TAB PO SCH (07:00)
[2017-08-30 07:30] VITALS: BP 128/69; PULSE 76; PULSE 84; RESP 20; TEMP 98.1; O2SAT 95
[2017-08-30 08:00] VITALS: PULSE 85
[2017-08-30] MEDS: INSULIN ASPART SUPPLEMENTAL SCALE SQ SCH ×2 (08:00→11:21)
--- NOTE | 2017-08-30 08:20 | PD.CARD.PN ---
Subjective Subjective Remarks No CP, arm pain, SOB, dizziness, palpitations. Slept very well. Objective Medications Item Value Date Time Aspirin 325 mg 08/29/17 0900 (Aspirin) DAILY/PO 08/29/17 0835 Aspirin 81 mg 08/30/17 0900 (Aspirin Chew) DAILY/PO Atorvastatin 80 mg 08/29/172129 Calcium HS/PO 08/29/17 213 (Lipitor) Ticagrelor 90 mg 08/29/17 2100 (Brilinta) BID/PO 08/29/172130 Enalapril Maleate 5 mg 08/28/17 1000 (Vasotec) DAILY/PO 08/29/17 0835 Gemfibrozil 600 mg 08/28/17 0700 (Lopid) BIDAC/PO 08/30/17 0700 Nitroglycerin 1 inch 08/28/17 0000 (Nitroglycerin Q6HR/TOPICAL 2% Oint) Metoprolol 50 mg 08/27/17 2100 Tartrate BID/PO 08/29/172131 (Lopressor) Current Medications Medications (Trade) Dose Ordered Sig/Tabatha Route Start Time Stop Time Status Last Admin Sodium Chloride 1,000 ml @ 42 mls/hr [id number] IV 08/27/17 11:00 08/27/17 12:22 (NS Flush) 2 ml UNSCH PRN IV FLUSH 08/27/17 10:15 (NS Flush) 2 ml BID IV FLUSH 08/27/17 21:00 08/29/17 21:00 (Zofran Odt) 4 mg Q6H PRN PO 08/27/17 10:15 (Morphine Inj) 2 mg Q3H PRN IV PUSH 08/27/17 10:15 08/29/17 21:30 (Morphine Inj) 4 mg Q3H PRN IV PUSH 08/27/17 10:15 08/29/17 17:09 (Narcan Inj) 0.4 mg UNSCH PRN IV PUSH 08/27/17 10:15 (Milk Of Magnesia Liq) 30 ml Q12H PRN PO 08/27/17 10:15 (Tylenol) 500 mg Q6H PRN PO 08/27/17 14:45 08/28/17 05:10 (D50w (Vial) Inj) 50 ml UNSCH PRN IV PUSH 08/27/17 16:00 (Glucagon Inj) 1 mg UNSCH PRN OTHER 08/27/17 16:00 (NovoLOG SUPPLEMENTAL SCALE) 1 ACHS SLIDING SCALE SQ 08/27/17 17:00 08/29/17 21:00 (Buspar) 10 mg BID PO 08/27/17 21:00 08/29/17 22:23 (Cymbalta Dr) 60 mg DAILY PO 08/28/17 09:00 08/29/17 08:36 (Folate) 1 mg DAILY PO 08/28/17 09:00 08/29/17 08:35 (Lopid) 600 mg BIDAC PO 08/28/17 07:00 08/30/17 07:00 (Synthroid) 25 mcg DAILY@0600 PO 08/28/17 09:00 08/30/17 06:00 (Lopressor) 50 mg BID PO 08/27/17 21:00 08/29/17 21:32 (Protonix) 20 mg DAILY PO 08/28/17 09:00 08/29/17 08:35 (Catapres) 0.1 mg Q6H PRN PO 08/27/17 18:15 08/27/17 18:40 (Nitrostat Sl) 0.4 mg Q5M PRN SL 08/27/17 18:15 (Nitroglycerin 2% Oint) 1 inch Q6HR TOPICAL 08/28/17 00:00 08/29/17 18:49 (Morphine Inj) 5 mg Q3H PRN IV PUSH 08/27/17 23:30 (Neurontin) 300 mg TID PO 08/28/17 10:15 08/29/17 18:49 Sodium Chloride 1,000 ml @ 100 mls/hr Q10H IV 08/28/17 09:59 09/02/17 09:58 08/29/17 17:09 (Benadryl) 50 mg BIOMEDICAL MANAGER PO 08/28/17 10:00 09/01/17 09:59 (Valium) 10 mg BIOMEDICAL MANAGER PO 08/28/17 10:00 09/01/17 09:59 (Versed Inj) 1 mg BIOMEDICAL MANAGER IV PUSH 08/28/17 10:00 09/01/17 09:59 (Vasotec) 5 mg DAILY PO 08/28/17 10:00 08/29/17 08:35 (Aspirin Chew) 81 mg DAILY PO 08/30/17 09:00 (Brilinta) 90 mg BID PO 08/29/17 21:00 08/29/17 21:31 (Lipitor) 80 mg HS PO 08/29/17 21:30 08/29/17 21:30 Vital Signs / I&O Vital Signs Date Time Temp Pulse Resp B/P (MAP) Pulse Ox O2 Delivery O2 Flow Rate FiO2 08/30/17 07:30 95 Room Air 08/30/17 07:30 76 08/30/17 07:30 98.1 84 20 128/69 (88) 95 08/30/17 06:00 69 08/30/17 03:00 97.7 77 23 131/60 (83) 91 08/30/17 03:00 77 08/29/17 23:00 97.9 78 22 126/61 (82) 91 08/29/17 23:00 78 08/29/17 21:40 20 08/29/17 19:00 98.2 66 20 136/68 (90) 92 08/29/17 19:00 92 Room Air 08/29/17 19:00 66 08/29/17 18:00 82 08/29/17 17:18 86 08/29/17 16:00 72 08/29/17 15:14 98.0 75 16 157/87 (110) 92 08/29/17 15:00 69 08/29/17 14:15 97.9 68 16 92 08/29/17 14:04 68 08/29/17 10:45 93 Room Air I/O 08/29/17 08/29/17 08/29/17 08/30/17 08/30/17 08/30/17 07:00 15:00 23:00 07:00 15:00 23:00 Intake Total 250 ml 1205 ml 480 ml 1500 ml Output Total 1400 ml Balance 250 ml 1205 ml 480 ml 100 ml Intake Oral 0 ml 480 ml 1500 ml IV Total 250 ml 1205 ml Output Urine Total 1400 ml # Voids 10 2 4 # Bowel Movements 0 0 Physical Exam GENERAL: Well developed, well nourished. No acute distress. HEENT: Jugular venous pressure is normal. CHEST: Lungs clear to auscultation bilaterally. Unlabored respiratory effort. CARDIAC: Regular rate and rhythm without S3, S4, or murmur. ABDOMEN: Soft, nontender, no hepatosplenomegaly. Bowel sounds present. EXTREMITIES: No clubbing, cyanosis, or edema. Mild right arm edema. No tenderness. Normal radial pulse. Laboratory Laboratory Tests Test 08/29/17 15:00 08/30/17 03:20 Activated Partial Thromboplast Time 24.6 SEC White Blood Count 12.4 TH/MM3 Red Blood Count 4.14 MIL/MM3 Hemoglobin 12.7 GM/DL Hematocrit 38.5 % Mean Corpuscular Volume 93.1 FL Mean Corpuscular Hemoglobin 30.8 PG Mean Corpuscular Hemoglobin Concent 33.0 % Red Cell Distribution Width 13.6 % Platelet Count 278 TH/MM3 Mean Platelet Volume 7.5 FL Neutrophils (%) (Auto) 85.9 % Lymphocytes (%) (Auto) 8.6 % Monocytes (%) (Auto) 2.6 % Eosinophils (%) (Auto) 2.3 % Basophils (%) (Auto) 0.6 % Neutrophils # (Auto) 10.6 TH/MM3 Lymphocytes # (Auto) 1.1 TH/MM3 Monocytes # (Auto) 0.3 TH/MM3 Eosinophils # (Auto) 0.3 TH/MM3 Basophils # (Auto) 0.1 TH/MM3 CBC Comment DIFF FINAL Differential Comment Blood Urea Nitrogen 14 MG/DL Creatinine 0.94 MG/DL Random Glucose 145 MG/DL Calcium Level 8.6 MG/DL Sodium Level 142 MEQ/L Potassium Level 4.1 MEQ/L Chloride Level 109 MEQ/L Carbon Dioxide Level 21.0 MEQ/L Anion Gap 12 MEQ/L Estimat Glomerular Filtration Rate 61 ML/MIN Total Creatine Kinase 67 U/L Triglycerides Level 267 MG/DL Cholesterol Level 318 MG/DL LDL Cholesterol 222 MG/DL HDL Cholesterol 43.1 MG/DL Cholesterol/HDL Ratio 7.37 RATIO Assessment and Plan Problem List: (1) NSTEMI (non-ST elevated myocardial infarction) ICD Codes: I21.4 - Non-ST elevation (NSTEMI) myocardial infarction Status: Acute Plan: Severe proximal and distal RCA disease stented x 4. EF mildly reduced 45%. Doing well. No further angina. REC OK to discharge today on current cardiac medications, 4 week f/u with me (2) Hyperlipidemia ICD Codes: E78.5 - Hyperlipidemia, unspecified Status: Chronic Plan: Very suboptimal lipid profile. Recommend continue atorvastatin 80 mg qd , Lopid. Code Status full code Discussed Condition With patient Problem Qualifiers (1) Hyperlipidemia: Qualified Codes: E78.2 - Mixed hyperlipidemia Deejay Mars MD Aug 30, 2017 08:20
[2017-08-30] MEDS: ENALAPRIL MALEATE 5 MG TAB PO SCH (08:38)
[2017-08-30] MEDS: SODIUM CHLORIDE 0.9% FLUSH 10 ML FLUSH IV FLUSH SCH (08:39)
[2017-08-30] MEDS: busPIRone HCL 10 MG TAB PO SCH (08:39)
[2017-08-30] MEDS: DULoxetine HCl DR 60 MG CAP PO SCH (08:39)
[2017-08-30] MEDS: METOPROLOL TARTRATE 50 MG TAB PO SCH (08:39)
[2017-08-30] MEDS: TICAGRELOR 90 MG TAB PO SCH (08:39)
[2017-08-30] MEDS: PANTOPRAZOLE SOD 20 MG DELAYED RELEASE TAB PO SCH (08:39)
[2017-08-30] MEDS: FOLIC ACID 1 MG TAB PO SCH (08:39)
[2017-08-30] MEDS: GABAPENTIN 300 MG CAP PO SCH (08:39)
[2017-08-30] MEDS ORDERED: BRIL90TA PO (08:56)
[2017-08-30 09:00] VITALS: PULSE 79
[2017-08-30] MEDS ORDERED: ASPIRIN 81 MG CHEW TAB PO SCH (09:00)
--- NOTE | 2017-08-30 09:59 | HHI.PR ---
Subjective Remarks Has been cleared by cardiology Wants to go home We will need to add niacin to her regimen since her triglycerides and cholesterol is still also elevated We will DC to home Had cardiac catheterization and stents yesterday Objective Vitals Vital Signs Date Time Temp Pulse Resp B/P (MAP) Pulse Ox O2 Delivery O2 Flow Rate FiO2 08/30/17 09:00 79 08/30/17 08:00 85 08/30/17 07:30 95 Room Air 08/30/17 07:30 76 08/30/17 07:30 98.1 84 20 128/69 (88) 95 08/30/17 06:00 69 08/30/17 03:00 97.7 77 23 131/60 (83) 91 08/30/17 03:00 77 08/29/17 23:00 97.9 78 22 126/61 (82) 91 08/29/17 23:00 78 08/29/17 21:40 20 08/29/17 19:00 98.2 66 20 136/68 (90) 92 08/29/17 19:00 92 Room Air 08/29/17 19:00 66 08/29/17 18:00 82 08/29/17 17:18 86 08/29/17 16:00 72 08/29/17 15:14 98.0 75 16 157/87 (110) 92 08/29/17 15:00 69 08/29/17 14:15 97.9 68 16 92 08/29/17 14:04 68 08/29/17 10:45 93 Room Air I/O 08/29/17 08/29/17 08/29/17 08/30/17 08/30/17 08/30/17 07:00 15:00 23:00 07:00 15:00 23:00 Intake Total 250 ml 1205 ml 480 ml 1500 ml Output Total 1400 ml Balance 250 ml 1205 ml 480 ml 100 ml Intake Oral 0 ml 480 ml 1500 ml IV Total 250 ml 1205 ml Output Urine Total 1400 ml # Voids 10 2 4 # Bowel Movements 0 0 Result Diagram: 08/30/17 0320 08/30/17 0320 Other Results Laboratory Tests Test 08/27/17 15:14 08/27/17 19:30 08/28/17 08:25 08/28/17 23:39 Troponin I 1.17 NG/ML 1.34 NG/ML 0.48 NG/ML White Blood Count 9.4 TH/MM3 Red Blood Count 4.21 MIL/MM3 Hemoglobin 13.4 GM/DL Hematocrit 39.8 % Mean Corpuscular Volume 94.6 FL Mean Corpuscular Hemoglobin 31.8 PG Mean Corpuscular Hemoglobin Concent 33.7 % Red Cell Distribution Width 13.3 % Platelet Count 268 TH/MM3 Mean Platelet Volume 8.0 FL Neutrophils (%) (Auto) 70.6 % Lymphocytes (%) (Auto) 18.7 % Monocytes (%) (Auto) 6.6 % Eosinophils (%) (Auto) 3.2 % Basophils (%) (Auto) 0.9 % Neutrophils # (Auto) 6.6 TH/MM3 Lymphocytes # (Auto) 1.8 TH/MM3 Monocytes # (Auto) 0.6 TH/MM3 Eosinophils # (Auto) 0.3 TH/MM3 Basophils # (Auto) 0.1 TH/MM3 CBC Comment DIFF FINAL Differential Comment Activated Partial Thromboplast Time 30.7 SEC 31.5 SEC Blood Urea Nitrogen 14 MG/DL Creatinine 0.96 MG/DL Random Glucose 163 MG/DL Total Protein 6.0 GM/DL Albumin 2.5 GM/DL Calcium Level 8.9 MG/DL Alkaline Phosphatase 89 U/L Aspartate Amino Transf (AST/SGOT) 60 U/L Alanine Aminotransferase (ALT/SGPT) 41 U/L Total Bilirubin 0.3 MG/DL Sodium Level 138 MEQ/L Potassium Level 3.9 MEQ/L Chloride Level 106 MEQ/L Carbon Dioxide Level 20.5 MEQ/L Anion Gap 12 MEQ/L Estimat Glomerular Filtration Rate 59 ML/MIN Hemoglobin A1c 8.3 % Triglycerides Level 531 MG/DL Cholesterol Level 345 MG/DL LDL Cholesterol MG/DL HDL Cholesterol 36.3 MG/DL Cholesterol/HDL Ratio 9.50 RATIO Test 08/29/17 15:00 08/30/17 03:20 Activated Partial Thromboplast Time 24.6 SEC White Blood Count 12.4 TH/MM3 Red Blood Count 4.14 MIL/MM3 Hemoglobin 12.7 GM/DL Hematocrit 38.5 % Mean Corpuscular Volume 93.1 FL Mean Corpuscular Hemoglobin 30.8 PG Mean Corpuscular Hemoglobin Concent 33.0 % Red Cell Distribution Width 13.6 % Platelet Count 278 TH/MM3 Mean Platelet Volume 7.5 FL Neutrophils (%) (Auto) 85.9 % Lymphocytes (%) (Auto) 8.6 % Monocytes (%) (Auto) 2.6 % Eosinophils (%) (Auto) 2.3 % Basophils (%) (Auto) 0.6 % Neutrophils # (Auto) 10.6 TH/MM3 Lymphocytes # (Auto) 1.1 TH/MM3 Monocytes # (Auto) 0.3 TH/MM3 Eosinophils # (Auto) 0.3 TH/MM3 Basophils # (Auto) 0.1 TH/MM3 CBC Comment DIFF FINAL Differential Comment Blood Urea Nitrogen 14 MG/DL Creatinine 0.94 MG/DL Random Glucose 145 MG/DL Calcium Level 8.6 MG/DL Sodium Level 142 MEQ/L Potassium Level 4.1 MEQ/L Chloride Level 109 MEQ/L Carbon Dioxide Level 21.0 MEQ/L Anion Gap 12 MEQ/L Estimat Glomerular Filtration Rate 61 ML/MIN Total Creatine Kinase 67 U/L Triglycerides Level 267 MG/DL Cholesterol Level 318 MG/DL LDL Cholesterol 222 MG/DL HDL Cholesterol 43.1 MG/DL Cholesterol/HDL Ratio 7.37 RATIO Imaging Last Impressions Chest X-Ray 08/27/17 0804 Signed Impressions: CONCLUSION: No acute cardiopulmonary abnormality is identified. Objective Remarks GENERAL: Awake alert and oriented 3 talkative and cooperative in no chest pain at this time SKIN: Warm and dry. HEAD: Atraumatic. Normocephalic. EYES: Pupils equal and round. No scleral icterus. No injection or drainage. Extraocular muscles intact wearing glasses ENT: No nasal bleeding or discharge. Mucous membranes pink and moist. Tongue is midline NECK: Trachea midline. No JVD. Supple CARDIOVASCULAR: Regular rate and rhythm. S1-S2 no S3 or S4 no heave or thrill or rub or gallop RESPIRATORY: No accessory muscle use. Clear to auscultation. Breath sounds equal bilaterally. GASTROINTESTINAL: Abdomen soft, non-tender, nondistended. Hepatic and splenic margins not palpable. Obese MUSCULOSKELETAL: Extremities without clubbing, cyanosis, or edema. No obvious deformities. NEUROLOGICAL: Awake and alert. No obvious cranial nerve deficits. Motor grossly within normal limits. Five out of 5 muscle strength in the arms and legs. Normal speech. PSYCHIATRIC: Appropriate mood and affect; insight and judgment normal. Procedures 08/29/2017 PROCEDURE: Left heart catheterization, selective coronary angiography, left ventriculography, angioplasty and stent of the distal right coronary, angioplasty and stent of the ostial to proximal right coronary. PROCEDURE NOTES: The patient was brought to the cardiac catheterization laboratory in a fasting state after having signed informed consent. The right radial region was prepped and draped as per policy and anesthetized with 1% lidocaine. Arterial access was obtained via the right radial artery and a 6-[place] sheath placed. Coronary arteriography was performed using a Underwood catheter to engage the left main and a Teto catheter to engage the right coronary. Left ventriculography was done using a multipurpose catheter. Percutaneous coronary intervention was done as described below. There were no apparent immediate complications. HEMODYNAMIC DATA: Left ventricle 153 with an end-diastolic pressure of 20. Aorta 162/97 with a mean of 124. There was no significant transvalvular aortic gradient on pullback of the pigtail catheter. CORONARY ARTERIOGRAPHY: The left main is normal. The left anterior descending gives rise to a small diagonal. There are minimal luminal irregularities in the proximal LAD. In the mid-LAD there is up to 50% stenosis fairly diffusely. The distal LAD is normal as is the diagonal. The left circumflex is a relatively small vessel giving rise to large obtuse marginal. There is 30% disease in the mid-obtuse marginal and 20% stenosis proximally. The very proximal left circumflex has 20% stenosis. The right coronary artery is a large, dominant vessel with an ulcerated, irregular 95% stenosis proximally and then a smooth tubular 70% lesion distally. LEFT VENTRICULOGRAPHY: Contrast injection of the left ventricle reveals mild global hypokinesis. Ejection fraction is estimated at 45%. PERCUTANEOUS CORONARY INTERVENTION DESCRIPTION OF PROCEDURE: Cangrelor was given as per protocol. 60 units/kg of heparin was also administered. Using a 6-[place] Amplatz right 2.0 guiding catheter with side holes, the ostium of the right coronary artery was re-engaged. Using a 0.014 [place] guidewire the proximal and distal disease was crossed without difficulty and the tip of the wire positioned distally. Predilation of the proximal and distal disease was done using a 2.5 mm Euphora balloon catheter. Stenting of the distal disease was done using a 3.0 x 18 mm Resolute Nasim stent, which was deployed at 16 to 17 atmospheres for 30 seconds. Stenting of the proximal disease was done using a 3.0 x 22 mm Resolute Boone stent, which was deployed at 18 atmospheres for 30 seconds. Angiography at this point shows more disease evident more proximally and at the ostium, which does not appear to be a pseudolesion from the guidewire. There is also a notch-like lesion very near the ostium, which results in a 70% stenosis. Therefore, it was decided to place another stent. A 3.0 x 18 mm Resolute Boone stent was deployed slightly overlapping the other stent. At this point, it is evident that the disease at the ostium was not covered by the stent. Therefore, another stent, a 3.5 x 8 mm Resolute Boone stent was positioned and deployed at the ostium. Post-dilation of the ostial to proximal stents was done using a 3.5 mm Non-Compliant Euphora balloon catheter which was inflated to as high as 18 atmospheres along the length of the stents. Final angiography shows overall good results with reduction of the disease to 0% residual with no definite evidence for dissection or distal embolization. The patient tolerated the procedure well. There were no apparent, immediate complications. CONCLUSIONS: 1. Moderate to severe two-vessel coronary artery disease. 2. Right dominant system. 3. Mildly reduced left ventricular systolic function with ejection fraction estimated at 45%. 4. Status post angioplasty and stent of the distal right coronary and ostial to proximal right coronary with 4 drug eluting stents. Medications and IVs Current Medications Nitroglycerin (Nitroglycerin 2% Oint) 1 inch ONCE ONCE TOP Last administered on 08/27/17at 08:27; Start 08/27/17 at 08:15; Stop 08/27/17 at 08:16; Status DC Sodium Chloride (NS Flush) 2 ml UNSCH PRN IVF FLUSH AFTER USING IV ACCESS Last administered on 08/27/17at 09:09; Start 08/27/17 at 08:15; Stop 08/27/17 at 10:47 ; Status DC Morphine Sulfate (Morphine Inj) 2 mg ONCE ONCE IV PUSH ; Start 08/27/17 at 09: 00; Stop 08/27/17 at 09:01; Status Cancel Ondansetron HCl (Zofran Odt) 4 mg ONCE ONCE PO Last administered on at 09:08; Start 08/27/17 at 09:00; Stop 08/27/17 at 09:01; Status DC Morphine Sulfate (Morphine Inj) 2 mg ONCE ONCE IV PUSH Last administered on at 09:09; Start 08/27/17 at 09:15; Stop 08/27/17 at 09:16; Status DC Sodium Chloride 1,000 ml @ 42 mls/hr [id number] IV Last administered on at 12:22; Start 08/27/17 at 11:00 Sodium Chloride (NS Flush) 2 ml UNSCH PRN IV FLUSH FLUSH AFTER USING IV ACCESS ; Start 08/27/17 at 10:15 Sodium Chloride (NS Flush) 2 ml BID IV FLUSH Last administered on 08/30/17at 08: 39; Start 08/27/17 at 21:00 Ondansetron HCl (Zofran Odt) 4 mg Q6H PRN PO NAUSEA OR VOMITING; Start at 10:15 Enoxaparin Sodium (Lovenox Inj) 40 mg Q24H SQ Last administered on 08/27/17at 12 :21; Start 08/27/17 at 12:00; Stop 08/27/17 at 23:26; Status DC Morphine Sulfate (Morphine Inj) 2 mg Q3H PRN IV PUSH Pain 3-5; if unable to take PO Last administered on 08/29/17at 21:30; Start 08/27/17 at 10:15 Morphine Sulfate (Morphine Inj) 4 mg Q3H PRN IV PUSH Pain 6-10;if unable to take PO Last administered on 08/29/17at 17:09; Start 08/27/17 at 10:15 Naloxone HCl (Narcan Inj) 0.4 mg UNSCH PRN IV PUSH SEE LABEL COMMENTS; Start at 10:15 Magnesium Hydroxide (Milk Of Magnesia Liq) 30 ml Q12H PRN PO Mild constipation ; Start 08/27/17 at 10:15 Acetaminophen (Tylenol) 500 mg Q6H PRN PO Headache Last administered on at 05:10; Start 08/27/17 at 14:45 Dextrose (D50w (Vial) Inj) 50 ml UNSCH PRN IV PUSH HYPOGLYCEMIA-SEE COMMENTS; Start 08/27/17 at 16:00 Glucagon (Glucagon Inj) 1 mg UNSCH PRN OTHER HYPOGLYCEMIA-SEE COMMENTS; Start 08/27/17 at 16:00 Insulin Aspart (NovoLOG SUPPLEMENTAL SCALE) 1 ACHS SLIDING SCALE SQ Last administered on 08/30/17at 08:00; Start 08/27/17 at 17:00 Atorvastatin Calcium (Lipitor) 20 mg HS PO Last administered on 08/28/17at 20:53 ; Start 08/27/17 at 21:00; Stop 08/29/17 at 10:56; Status DC Buspirone HCl (Buspar) 10 mg BID PO Last administered on 08/30/17at 08:39; Start 08/27/17 at 21:00 Duloxetine HCl (Cymbalta Dr) 60 mg DAILY PO Last administered on 08/30/17at 08: 39; Start 08/28/17 at 09:00 Folic Acid (Folate) 1 mg DAILY PO Last administered on 08/30/17at 08:39; Start 08/28/17 at 09:00 Gabapentin (Neurontin) 300 mg HS PO Last administered on 08/27/17at 21:30; Start 08/27/17 at 21:00; Stop 08/28/17 at 10:02; Status DC Gemfibrozil (Lopid) 600 mg BIDAC PO Last administered on 08/30/17at 07:00; Start 08/28/17 at 07:00 Levothyroxine Sodium (Synthroid) 25 mcg DAILY@0600 PO Last administered on 08/30at 06:00; Start 08/28/17 at 09:00 Metoprolol Tartrate (Lopressor) 50 mg BID PO Last administered on 08/30/17at 08: 39; Start 08/27/17 at 21:00 Pantoprazole Sodium (Protonix) 20 mg DAILY PO Last administered on 08/30/17at 08 :39; Start 08/28/17 at 09:00 Clonidine (Catapres) 0.1 mg Q6H PRN PO SBP>160, DBP>90 Last administered on at 18:40; Start 08/27/17 at 18:15 Aspirin (Aspirin) 325 mg DAILY PO Last administered on 08/29/17at 08:35; Start 08/29/17 at 09:00; Stop 08/29/17 at 10:53; Status DC Nitroglycerin (Nitrostat Sl) 0.4 mg Q5M PRN SL X 3 doses for chest pain; Start 08/27/17 at 18:15 Nitroglycerin (Nitroglycerin 2% Oint) 1 inch Q6HR TOPICAL Last administered on 08/29/17at 18:49; Start 08/28/17 at 00:00; Stop 08/30/17 at 08:21; Status DC Heparin Sodium (Porcine) (Heparin Inj) 6,000 units ONCE ONCE IV PUSH ; Start at 23:30; Stop 08/27/17 at 23:31; Status DC Heparin Sodium (Porcine) (Heparin Inj) 5,000 units UNSCH PRN IV PUSH APTT LESS THAN 25; Start 08/28/17 at 05:30; Stop 08/29/17 at 10:49; Status DC Heparin Sodium (Porcine) (Heparin Inj) 2,500 units UNSCH PRN IV PUSH APTT 25 TO 39; Start 08/28/17 at 05:30; Stop 08/29/17 at 10:49; Status DC Heparin Sodium/ Dextrose 250 ml @ 10 mls/hr TITRATE PRN IV Coagulation Management Last administered on 08/28/17at 23:06; Start 08/27/17 at 23:30; Stop 08/29/17 at 10:49; Status DC Morphine Sulfate (Morphine Inj) 5 mg Q3H PRN IV PUSH CHEST PAIN; Start at 23:30 Heparin Sodium (Porcine) (Heparin Inj) 4,000 units ONCE ONCE IV PUSH Last administered on 08/28/17at 00:19; Start 08/27/17 at 23:45; Stop 08/27/17 at 23:46 ; Status DC Gabapentin (Neurontin) 300 mg TID PO Last administered on 08/30/17at 08:39; Start 08/28/17 at 10:15 Sodium Chloride 1,000 ml @ 100 mls/hr Q10H IV Last administered on 08/29/17at 17:09; Start 08/28/17 at 09:59; Stop 09/02/17 at 09:58 Diphenhydramine HCl (Benadryl) 50 mg ASSISTANT ACTIVITIES DIRECTOR PO ; Start 08/28/17 at 10:00; Stop 09/01/17 at 09:59 Diazepam (Valium) 10 mg ASSISTANT ACTIVITIES DIRECTOR PO ; Start 08/28/17 at 10:00; Stop 09/01/17 at 09:59 Midazolam HCl (Versed Inj) 1 mg ASSISTANT ACTIVITIES DIRECTOR IV PUSH ; Start 08/28/17 at 10:00; Stop 09/01/17 at 09:59 Enalapril Maleate (Vasotec) 5 mg DAILY PO Last administered on 08/30/17 08:38 ; Start 08/28/17 at 10:00 Heparin Sodium/ Sodium Chloride 1,500 ml @ As Directed STK-MED ONCE .ROUTE Last administered on 08/29/17 08:28; Start 08/29/17 at 08:28; Stop 08/29/17 at 08:29; Status DC Midazolam HCl (Versed Inj) 2 mg STK-MED ONCE .ROUTE Last administered on 09:19; Start 08/29/17 at 08:44; Stop 08/29/17 at 08:45; Status DC Verapamil HCl (Isoptin Inj) 5 mg STK-MED ONCE .ROUTE Last administered on 09:26; Start 08/29/17 at 08:51; Stop 08/29/17 at 08:52; Status DC Heparin Sodium (Porcine) (Heparin Inj) 10,000 units STK-MED ONCE .ROUTE Last administered on 08/29/17 09:42; Start 08/29/17 at 08:51; Stop 08/29/17 at 08:52 ; Status DC Nitroglycerin 5 ml @ As Directed STK-MED ONCE .ROUTE Last administered on 09:26; Start 08/29/17 at 08:51; Stop 08/29/17 at 08:52; Status DC Fentanyl Citrate (fentaNYL INJ) 100 mcg STK-MED ONCE .ROUTE Last administered on 08/29/17 09:20; Start 08/29/17 at 09:20; Stop 08/29/17 at 09:21; Status DC Cangrelor (Kengreal Inj) 50,000 mcg STK-MED ONCE .ROUTE Last administered on 09:49; Start 08/29/17 at 09:43; Stop 08/29/17 at 09:44; Status DC Ticagrelor (Brilinta) 180 mg STK-MED ONCE PO Last administered on 08/29/17 10: 27; Start 08/29/17 at 09:57; Stop 08/29/17 at 09:58; Status DC Sodium Chloride 1,000 ml @ 100 mls/hr Q10H IV ; Start 08/29/17 at 10:37; Stop 08/29/17 at 20:36; Status DC Aspirin (Aspirin Chew) 81 mg DAILY PO Last administered on 08/30/17at 08:37; Start 08/30/17 at 09:00 Ticagrelor (Brilinta) 90 mg BID PO Last administered on 08/30/17at 08:39; Start 08/29/17 at 21:00 Miscellaneous Information 1 ONCE ONCE XX ; Start 08/29/17 at 10:45; Stop at 10:50; Status DC Cangrelor 94051 mcg/Sodium Chloride 250 ml @ 0 mls/hr ONCE ONCE IV ; Start at 10:49; Stop 08/29/17 at 10:50; Status DC Atorvastatin Calcium (Lipitor) 80 mg HS PO ; Start 08/29/17 at 21:00; Status Cancel Iohexol (OMNIPAQUE 350 INJ (Hat Cleaner)) 100 ml STK-MED ONCE OTHER ; Start at 11:40; Stop 08/29/17 at 11:41; Status DC Atorvastatin Calcium (Lipitor) 80 mg HS PO Last administered on 08/29/17at 21:30 ; Start 08/29/17 at 21:30 A/P Problem List: (1) Chest pain ICD Code: R07.9 - Chest pain, unspecified (2) Elevated troponin ICD Code: R74.8 - Abnormal levels of other serum enzymes Assessment and Plan Assessment and Plan 62-year-old female admitted secondary to chest pain with elevated troponin NSTEMI History fo CAD, HTN - elevated troponins, 12 Lekg- diffuse flattening, no acute changes - for cardiac cath this am - heparin drip, ASA, BB, nitrates, JONE General anxiety disorder Depression PTSD - continue home meds Diabetes mellitus type 2 DM neuropathy Follow blood sugars- states good hypoglycemic awareness Insulin sliding scale for now Diabetic diet, chekc A1C- pending On Gabapentin to 300 mg po tid - home dose Hyperlipidemia Continue statins/Lopid dietitian consult for counselling Hypothyroidism Continue- synthroid CAD Status post cardiac catheterization yesterday with stent to the distal RCA and ostial marginal RCA's total of [address] RICKIE CLEMENT ON LOPID,LIPITOR, ADD NIACIN Discharge Planning DC TO HOME Jonathan Mota DO Aug 30, 2017 09:59
[2017-08-30 10:00] VITALS: PULSE 81
[2017-08-30] MEDS ORDERED: METO50TA PO (10:05)
[2017-08-30] MEDS ORDERED: ENAL5TAB PO (10:05)
[2017-08-30] MEDS ORDERED: SYNT25TA PO (10:05)
[2017-08-30] MEDS ORDERED: ASPI81 PO (10:05)
[2017-08-30] MEDS ORDERED: NEUR300C PO (10:05)
[2017-08-30] MEDS ORDERED: GEMF600T PO (10:05)
[2017-08-30] MEDS ORDERED: OMEP20TA93 PO (10:05)
[2017-08-30] MEDS ORDERED: GLIP5TAB8 PO (10:05)
[2017-08-30] MEDS ORDERED: BUSP10TA PO (10:05)
[2017-08-30] MEDS ORDERED: ATOR80TA45 PO (10:05)
[2017-08-30] MEDS ORDERED: FOLI800T PO (10:05)
[2017-08-30] MEDS ORDERED: CYMB60CA PO (10:05)
[2017-08-30] MEDS ORDERED: NIAC1TAB5 PO (10:05)
[2017-08-30] MEDS ORDERED: NICO14DI4 T-DERMAL (10:09)
--- NOTE | 2017-08-30 10:12 | HHI.DS ---
Discharge Summary Admission Date Aug 28, 2017 at 11:43 Discharge Date: Aug 30, 2017 Admitting Diagnosis NSTEMI (1) Chest pain ICD Code: R07.9 - Chest pain, unspecified Diagnosis: Principal (2) Elevated troponin ICD Code: R74.8 - Abnormal levels of other serum enzymes Diagnosis: Principal (3) Hyperlipidemia ICD Code: E78.5 - Hyperlipidemia, unspecified Diagnosis: Principal Status: Chronic (4) NSTEMI (non-ST elevated myocardial infarction) ICD Code: I21.4 - Non-ST elevation (NSTEMI) myocardial infarction Diagnosis: Principal Status: Acute (5) Adjustment disorder with depressed mood ICD Code: F43.21 - Adjustment disorder with depressed mood Diagnosis: Secondary Status: Acute Procedures 08/29/2017 PROCEDURE: Left heart catheterization, selective coronary angiography, left ventriculography, angioplasty and stent of the distal right coronary, angioplasty and stent of the ostial to proximal right coronary. PROCEDURE NOTES: The patient was brought to the cardiac catheterization laboratory in a fasting state after having signed informed consent. The right radial region was prepped and draped as per policy and anesthetized with 1% lidocaine. Arterial access was obtained via the right radial artery and a 6-Gibraltarian sheath placed. Coronary arteriography was performed using a Eureka catheter to engage the left main and a Teto catheter to engage the right coronary. Left ventriculography was done using a multipurpose catheter. Percutaneous coronary intervention was done as described below. There were no apparent immediate complications. HEMODYNAMIC DATA: Left ventricle 153 with an end-diastolic pressure of 20. Aorta 162/97 with a mean of 124. There was no significant transvalvular aortic gradient on pullback of the pigtail catheter. CORONARY ARTERIOGRAPHY: The left main is normal. The left anterior descending gives rise to a small diagonal. There are minimal luminal irregularities in the proximal LAD. In the mid-LAD there is up to 50% stenosis fairly diffusely. The distal LAD is normal as is the diagonal. The left circumflex is a relatively small vessel giving rise to large obtuse marginal. There is 30% disease in the mid-obtuse marginal and 20% stenosis proximally. The very proximal left circumflex has 20% stenosis. The right coronary artery is a large, dominant vessel with an ulcerated, irregular 95% stenosis proximally and then a smooth tubular 70% lesion distally. LEFT VENTRICULOGRAPHY: Contrast injection of the left ventricle reveals mild global hypokinesis. Ejection fraction is estimated at 45%. PERCUTANEOUS CORONARY INTERVENTION DESCRIPTION OF PROCEDURE: Cangrelor was given as per protocol. 60 units/kg of heparin was also administered. Using a 6-[place] Amplatz right 2.0 guiding catheter with side holes, the ostium of the right coronary artery was re-engaged. Using a 0.014 [place] guidewire the proximal and distal disease was crossed without difficulty and the tip of the wire positioned distally. Predilation of the proximal and distal disease was done using a 2.5 mm Euphora balloon catheter. Stenting of the distal disease was done using a 3.0 x 18 mm Resolute Jasper stent, which was deployed at 16 to 17 atmospheres for 30 seconds. Stenting of the proximal disease was done using a 3.0 x 22 mm Resolute Jasper stent, which was deployed at 18 atmospheres for 30 seconds. Angiography at this point shows more disease evident more proximally and at the ostium, which does not appear to be a pseudolesion from the guidewire. There is also a notch-like lesion very near the ostium, which results in a 70% stenosis. Therefore, it was decided to place another stent. A 3.0 x 18 mm Resolute Nasim stent was deployed slightly overlapping the other stent. At this point, it is evident that the disease at the ostium was not covered by the stent. Therefore, another stent, a 3.5 x 8 mm Resolute Jasper stent was positioned and deployed at the ostium. Post-dilation of the ostial to proximal stents was done using a 3.5 mm Non-Compliant Euphora balloon catheter which was inflated to as high as 18 atmospheres along the length of the stents. Final angiography shows overall good results with reduction of the disease to 0% residual with no definite evidence for dissection or distal embolization. The patient tolerated the procedure well. There were no apparent, immediate complications. CONCLUSIONS: 1. Moderate to severe two-vessel coronary artery disease. 2. Right dominant system. 3. Mildly reduced left ventricular systolic function with ejection fraction estimated at 45%. 4. Status post angioplasty and stent of the distal right coronary and ostial to proximal right coronary with 4 drug eluting stents. Brief History - From Admission Mrs. Giang is a 62-year-old female. She has a past history of diabetes, hypertension, and smoking. She currently still smokes but says she smokes less than half pack a day. Family history is positive for CVA in her grandmother myocardial infarction in the patient's mother. She came into the hospital today complaining of tight central chest pain which radiated to her left arm. The pain has improved through time. She had first thought it was GI but subsequently developed pain severe enough to concern her and worried her that it could be her heart. She has one previous episode of chest pain earlier this year and had workup in the hospital which included telemetry monitoring and stress test. She cites that workup is negative. She has been told by her primary care physician the suspicion for a myocardial infarction based on EKG was present, 25 years ago. No other complaints today. First set of cardiac enzymes shows a troponin of 0.06. EKG changes are not specific. ST changes are not seen. CBC/BMP: 08/30/17 0320 08/30/17 0320 Significant Findings Laboratory Tests Test 08/27/17 15:14 08/27/17 19:30 08/28/17 08:25 08/28/17 23:39 Troponin I 1.17 NG/ML (0.02-0.05) 1.34 NG/ML (0.02-0.05) 0.48 NG/ML (0.02-0.05) Neutrophils (%) (Auto) 70.6 % (16.0-70.0) Activated Partial Thromboplast Time 30.7 SEC (24.3-30.1) 31.5 SEC (24.3-30.1) Random Glucose 163 MG/DL (74-106) Total Protein 6.0 GM/DL (6.4-8.2) Albumin 2.5 GM/DL (3.4-5.0) Aspartate Amino Transf (AST/SGOT) 60 U/L (15-37) Carbon Dioxide Level 20.5 MEQ/L (21.0-32.0) Estimat Glomerular Filtration Rate 59 ML/MIN (>89) Hemoglobin A1c 8.3 % (4.3-6.0) Triglycerides Level 531 MG/DL (42-150) Cholesterol Level 345 MG/DL (120-200) HDL Cholesterol 36.3 MG/DL (40.0-60.0) Test 08/29/17 15:00 08/30/17 03:20 White Blood Count 12.4 TH/MM3 (4.0-11.0) Neutrophils (%) (Auto) 85.9 % (16.0-70.0) Lymphocytes (%) (Auto) 8.6 % (9.0-44.0) Neutrophils # (Auto) 10.6 TH/MM3 (1.8-7.7) Random Glucose 145 MG/DL (74-106) Chloride Level 109 MEQ/L (98-107) Estimat Glomerular Filtration Rate 61 ML/MIN (>89) Triglycerides Level 267 MG/DL (42-150) Cholesterol Level 318 MG/DL (120-200) LDL Cholesterol 222 MG/DL (0-99) Imaging Last Impressions Chest X-Ray 08/27/17 0804 Signed Impressions: CONCLUSION: No acute cardiopulmonary abnormality is identified. PE at Discharge GENERAL: Awake alert and oriented 3 talkative and cooperative in no chest pain at this time SKIN: Warm and dry. HEAD: Atraumatic. Normocephalic. EYES: Pupils equal and round. No scleral icterus. No injection or drainage. Extraocular muscles intact wearing glasses ENT: No nasal bleeding or discharge. Mucous membranes pink and moist. Tongue is midline NECK: Trachea midline. No JVD. Supple CARDIOVASCULAR: Regular rate and rhythm. S1-S2 no S3 or S4 no heave or thrill or rub or gallop RESPIRATORY: No accessory muscle use. Clear to auscultation. Breath sounds equal bilaterally. GASTROINTESTINAL: Abdomen soft, non-tender, nondistended. Hepatic and splenic margins not palpable. Obese MUSCULOSKELETAL: Extremities without clubbing, cyanosis, or edema. No obvious deformities. NEUROLOGICAL: Awake and alert. No obvious cranial nerve deficits. Motor grossly within normal limits. Five out of 5 muscle strength in the arms and legs. Normal speech. PSYCHIATRIC: Appropriate mood and affect; insight and judgment normal. Hospital Course Mrs. Giang is a 62-year-old female. She has a past history of diabetes, hypertension, and smoking. She currently still smokes but says she smokes less than half pack a day. Family history is positive for CVA in her grandmother myocardial infarction in the patient's mother. She came into the hospital today complaining of tight central chest pain which radiated to her left arm. The pain has improved through time. She had first thought it was GI but subsequently developed pain severe enough to concern her and worried her that it could be her heart. She has one previous episode of chest pain earlier this year and had workup in the hospital which included telemetry monitoring and stress test. She cites that workup is negative. She has been told by her primary care physician the suspicion for a myocardial infarction based on EKG was present, 25 years ago. No other complaints today. First set of cardiac enzymes shows a troponin of 0.06. EKG changes are not specific. ST changes are not seen. Has been cleared by cardiology Wants to go home We will need to add niacin to her regimen since her triglycerides and cholesterol is still also elevated We will DC to home Had cardiac catheterization and stents yesterday STOP SMOKING Pt Condition on Discharge: Good Discharge Disposition: Discharge Home Discharge Time: > 30 minutes Discharge Instructions DIET: Follow Instructions for: Heart Healthy Diet, Diabetic Diet Speech Therapy-Diet Recommends: Regular Activities you can perform: Shower Only-No Bath Follow up Referrals: Cardiology, Interventional - 4 Weeks with Deejay Mars MD PCP Follow-up - 2-3 Days New Medications: Niacin ER (Niacin ER) 1,000 Mg Tab 1000 MG PO HS for Cholesterol Management, #30 TAB 0 Refills Nicotine Patch (Nicoderm CQ Patch) 14 Mg/24 Hr Patch 14 MG T-DERMAL DAILY for Smoking Cessation, #30 PATCH 0 Refills Aspirin (Tgt Aspirin) 81 Mg Chw 81 MG PO DAILY for Blood Clot Prevention, #30 EA Atorvastatin (Atorvastatin) 80 Mg Tab 80 MG PO HS for Cholesterol Management, #30 TAB Enalapril (Enalapril) 5 Mg Tab 5 MG PO DAILY for Blood Pressure Management, #30 TAB Gabapentin (Neurontin) 300 Mg Cap 300 MG PO TID for Pain Management, #90 CAP Ticagrelor (Brilinta) 90 Mg Tab 90 MG PO BID for Blood Clot Prevention, #60 TAB Continued Medications: Buspirone (Buspirone) 10 Mg Tab 10 MG PO BID for Anxiety, #60 TAB 0 Refills (This prescription has been renewed) Duloxetine DR (Cymbalta DR) 60 Mg Capdr 60 MG PO DAILY for ANXIETY, #30 CAP 0 Refills (This prescription has been renewed) Folic Acid (Folic Acid) 0.8 Mg Tab 1000 MCG PO DAILY for Nutritional Supplement, #30 TAB 0 Refills (This prescription has been renewed) Gemfibrozil (Gemfibrozil) 600 Mg Tab 600 MG PO BIDAC for Cholesterol Management, #60 TAB 0 Refills (This prescription has been renewed) Take 30 minutes prior to breakfast and dinner. Glipizide (Glipizide) 5 Mg Tab 2.5 MG PO BIDAC for Blood Sugar Management, #60 TAB 0 Refills (This prescription has been renewed) Take 30 minutes before a meal Insulin Aspart Inj (Novolog Flexpen Inj) 300 Unit/3 Ml Pen 1 UNITS SQ for Blood Sugar Management, #1 PEN 0 Refills Insulin Human NPH Inj (Novolin N Inj) 1,000 Unit/10 Ml Vial 20 UNITS SQ for Blood Sugar Management, #10 ML 0 Refills Levothyroxine (Synthroid) 25 Mcg Tab 25 MCG PO DAILY for Thyroid, #30 TAB 0 Refills (This prescription has been renewed) Metoprolol Tartrate (Metoprolol Tartrate) 50 Mg Tab 50 MG PO BID for Blood Pressure Management, #60 TAB 0 Refills (This prescription has been renewed) Omeprazole (Omeprazole) 20 Mg Tab 20 MG PO DAILY for Regulate Heart Beat, #30 TAB 0 Refills (This prescription has been renewed) Discontinued Medications: Atorvastatin (Lipitor) 20 Mg Tab 20 MG PO HS for Cholesterol Management, #30 TAB 0 Refills Buspirone (Buspirone) 5 Mg Tab 5 MG PO BID for Anxiety, TAB 0 Refills Epinephrine Inj (Epinephrine Inj) 1 Mg/Ml Inj 0.3 MG IV PUSH ONCE PRN for ALLERGIC REACTION, #1 VIAL Epinephrine Inj (Epinephrine Inj) 1 Mg/Ml Inj 0.3 MG SQ ONCE PRN for ALLERGIC REACTION, #1 VIAL Give with any signs of respiratory distress. Ertapenem Inj (Invanz Inj) 1 Gm Addvial 1000 MG IV DAILY for Infection, #7 BAG 0 Refills Stop date: 06/24/2016 Gabapentin (Gabapentin) 300 Mg Cap 300 MG PO HS, #30 CAP 0 Refills Hydralazine HCl (Hydralazine HCl) 50 Mg Tablet BID Hydrocortisone Inj (Solu-Cortef Inj) 250 Mg Inj 250 MG IV PUSH ONCE PRN for ALLERGIC REACTION, #1 VIAL 0 Refills Give over 30-60 seconds. Metronidazole (Flagyl) 500 Mg Tab 500 MG PO Q8HR for Diverticulitis and Cdiff colit for 21 Days, TAB 0 Refills Additional Information STOP SMOKING Jonathan Mota DO Aug 30, 2017 10:12
[2017-08-30] MEDS: SODIUM CHLOR 0.9% 1000 ML INJ 1,000 ML IV SCH (10:27)
== END 2017-08-30 11:30 | disposition home or self-care (01) | DRG 246 ==
LOC: NEPC 07:58 → INTOOBSV 10:11 → NEDA 10:11 → N04B 12:08 → OBSVTOIN 08-28 11:43 → HCIS 08-29 10:09 → HCPC 08-29 14:00
PROVIDERS: ADMIT Hospitalist; ATTEND Hospitalist
PROC: 4A023N7 Measurement of Cardiac Sampling and Pressure, Left Heart, Percutaneous Approach (ICD-10-PCS; 2017-08-29)
PROC: B2111ZZ Fluoroscopy of Multiple Coronary Arteries using Low Osmolar Contrast (ICD-10-PCS; 2017-08-29)
PROC: B2151ZZ Fluoroscopy of Left Heart using Low Osmolar Contrast (ICD-10-PCS; 2017-08-29)
PROC: 027037Z Dilation of Coronary Artery, One Artery with Four or More Drug-eluting Intraluminal Devices, Percutaneous Approach (ICD-10-PCS; principal; 2017-08-29 10:00)
DX: I21.4 Non-ST elevation (NSTEMI) myocardial infarction (principal); E11.40 Type 2 diabetes mellitus with diabetic neuropathy, unspecified; I25.110 Atherosclerotic heart disease of native coronary artery with unstable angina pectoris; I10 Essential (primary) hypertension; F41.1 Generalized anxiety disorder; F43.10 Post-traumatic stress disorder, unspecified; E03.9 Hypothyroidism, unspecified; F17.210 Nicotine dependence, cigarettes, uncomplicated; E78.2 Mixed hyperlipidemia; F43.21 Adjustment disorder with depressed mood; I25.2 Old myocardial infarction; Z79.4 Long term (current) use of insulin; Z79.899 Other long term (current) drug therapy; Z95.5 Presence of coronary angioplasty implant and graft; Z87.11 Personal history of peptic ulcer disease; Z82.49 Family history of ischemic heart disease and other diseases of the circulatory system; Z82.3 Family history of stroke
CPT/HCPCS: 71046; 80048; 80053; 80061; 82550; 82552; 82948; 83036; 83690; 83735; 84484; 85002; 85025; 85379; 85610; 85730; 92928; 93005; 93458; 96374; 99152; 99153; C1725; C1769; C1874; C1887; C1893; C9460; J1644; J1650; J1815; J2250; J2270; J3010; J7030; Q9967

== ENCOUNTER 2017-09-10 18:52 | Inpatient (IN) ==
[2017-09-10] MEDS ORDERED: Mag Sulf 1 gm/100 ml Premix 200 ML IV.SIG ONE (22:52)
[2017-09-10] MEDS ORDERED: Morphine Inj 4 MG/ML Vial ONE (23:52)
[2017-09-11] MEDS ORDERED: Acetaminophen 325 MG Tablet ONE (05:45)
[2017-09-11] MEDS: Acetaminophen 325 MG Tablet PO PRN ×2 (06:13→15:12)
[2017-09-11] MEDS: glipiZIDE 5 MG Tablet PO SCH ×2 (08:10→17:14)
[2017-09-11] MEDS ORDERED: Nitroglycerin Drip Premix 50 MG/250 ML BOTTLE IV.CONT PRN ×4 (08:16→08:29)
[2017-09-11] MEDS ORDERED: Pantoprazole Sodium 20 MG DR Tablet PO SCH (09:00)
[2017-09-11] MEDS ORDERED: Metoprolol Tartrate 50 MG Tablet PO SCH (09:00)
[2017-09-11] MEDS ORDERED: Labetalol HCl Inj 100 MG/20 ML Vial IV.PUSH ONE (09:00)
[2017-09-11] MEDS: Duloxetine 60 MG DR Capsule PO SCH (09:06)
[2017-09-11] MEDS: Gabapentin 300 MG Capsule PO SCH ×3 (09:07→17:15)
[2017-09-11] MEDS: Folic Acid 1 MG Tablet PO SCH (09:07)
[2017-09-11] MEDS: Pantoprazole Sodium 20 MG DR Tablet PO SCH (09:07)
[2017-09-11 09:41] LABS: Calcium 8.3 mg/dL (8.5-10.1); Carbon Dioxide 14.1 meq/L (21.0-32.0); Potassium 3.5 meq/L (3.5-5.1)
--- NOTE | 2017-09-11 09:52 | P.PNIM ---
Subjective Interval history: awake and alert, no chest pain or shortness of breath no nausea or vomiting discussed about smoking cessation on exam- generalized erythema- no wheals, no wheezes - started on EDIE- will hold for now and monitor Physical Exam Vital signs: Vital Signs 09/11/17 08:01 Temperature 98.2 F Pulse Rate 89 Respiratory Rate 22 Blood Pressure 145/97 H Pulse Oximetry 98 Intake & Output 09/10/17 09/11/17 09/11/17 18:59 06:59 18:59 Intake Total 480 / 480 Output Total 1350 / 1350 Balance -870 / -870 Weight 101.5 kg 101.5 kg Intake: Oral 480 / 480 Output: Urine 1350 / 1350 Other: Weight On Admission 101.5 kg - Constitutional no acute distress - Routine HEENT Exam Head: Present: normocephalic Eye: Present: EOMI, conjunctivae pink ENT: Present: oropharynx clear - Routine Neck Exam Present: supple - Routine Respiratory Exam Present: CTA bilaterally - Routine Cardiovascular Exam Present: RRR - Routine Abdominal Exam Present: soft, normoactive bowel sounds - Routine Extremities Exam Present: full ROM. Absent: clubbing, edema, calf tenderness, joint swelling - Routine Neurological Exam Present: alert, oriented X3, moving all extremities Results - Labs CBC & Chem 7: 09/10/17 18:55 09/11/17 04:18 Labs: Laboratory Results - last 24 hr 09/10/17 09/10/17 09/10/17 18:55 18:55 18:55 WBC RBC Hgb POC Hgb 13.3 Hct POC Hct 39.0 MCV MCH MCHC RDW Plt Count MPV Neut % (Auto) Lymph % (Auto) [place] % (Auto) Eos % (Auto) Baso % (Auto) Neut # (Auto) Lymph # (Auto) [place] # (Auto) Eos # (Auto) Baso # (Auto) CBC Comment PT 11.2 INR 1.1 APTT 98.4 H* POC Sodium 137 Sodium POC Potassium 3.1 L Potassium POC Chloride 103 Chloride Carbon Dioxide Anion Gap BUN POC BUN 9 Creatinine POC Creatinine 0.9 Estimated GFR POC Glucose 448 H Random Glucose Calcium 8.0 L Magnesium 1.4 L Total Creatine Kinase 79 Troponin I 0.02 B-Natriuretic Peptide 32 09/10/17 09/11/17 18:55 04:18 WBC 10.6 RBC 4.46 Hgb 14.2 POC Hgb Hct 40.8 POC Hct MCV 91.4 MCH 31.8 MCHC 34.8 RDW 13.4 Plt Count 378 MPV 8.2 Neut % (Auto) 68.2 Lymph % (Auto) 21.7 [place] % (Auto) 6.7 Eos % (Auto) 2.3 Baso % (Auto) 1.1 Neut # (Auto) 7.2 Lymph # (Auto) 2.3 [place] # (Auto) 0.7 Eos # (Auto) 0.2 Baso # (Auto) 0.1 CBC Comment DIFF FINAL PT INR APTT POC Sodium Sodium 141 POC Potassium Potassium 3.5 POC Chloride Chloride 109 H Carbon Dioxide 14.1 L Anion Gap 18 H BUN 7 POC BUN Creatinine 1.10 H POC Creatinine Estimated GFR 51 L POC Glucose Random Glucose 300 H Calcium 8.3 L Magnesium Total Creatine Kinase Troponin I B-Natriuretic Peptide Assessment and Plan - Plan 62 years old female History of CAD recent STEMI 08/29 admitted for chest pain CMP S/P cardiac cath- 09/10- RCA showing proximal stent 100% occluded Hypertension Hyperlipidemia - cotninue on ASA, Brillinta bid, BB- increase dose to q 50 mg po q8, statins - 2D echo pending - right wrist- cath site- good pulses, no hematoma - Edie initiated- will hold for now- will d/w cardiology DM type 2 - ff blood sugars with coverage - check A1C - d/w goals- needs good control History of Hypothyroidism -check TSH. continue synthroid Hypomagnesemia- recheck today Hypokalemia- improved Generalized erythema- no wheezes - per patient had same reaction in the past ? EDIE realted - hold EDIE and monitor - reviewed home meds- not on any EDIE on reveiw of home meds Depression- continue home meds Increase activity- out of bed to cahir- ambulate around room
[2017-09-11] MEDS ORDERED: Dextrose 50% in Water 50 ML Vial IV.PUSH PRN (10:47)
--- NOTE | 2017-09-11 14:42 | P.PNCA ---
Subjective Interval history: Doing well overall Non-specific chest pain last night has resolved Still erythematous since last hospitalization, ? JONE-I Physical Exam Vital signs: Vital Signs 09/11/17 08:01 09/11/17 11:00 Temperature 98.2 F 98.6 F Pulse Rate 89 85 Respiratory Rate 22 Blood Pressure 145/97 H 105/64 Pulse Oximetry 98 Intake & Output 09/10/17 09/11/17 09/11/17 18:59 06:59 18:59 Intake Total 480 / 480 Output Total 1350 / 1350 Balance -870 / -870 Weight 101.5 kg 101.5 kg Intake: Oral 480 / 480 Output: Urine 1350 / 1350 Other: Weight On Admission 101.5 kg Narrative: GENERAL: NAD, AAOx3 SKIN: Warm and dry. Erythematous HEAD: Atraumatic. Normocephalic. EYES: Pupils equal and round. No scleral icterus. No injection or drainage. ENT: No nasal bleeding or discharge. Mucous membranes pink and moist. NECK: Trachea midline. No JVD. CARDIOVASCULAR: Regular rate and rhythm. RESPIRATORY: No accessory muscle use. Clear to auscultation. Breath sounds equal bilaterally. GASTROINTESTINAL: Abdomen soft, non-tender, nondistended. Hepatic and splenic margins not palpable. MUSCULOSKELETAL: Extremities without clubbing, cyanosis, or edema. No obvious deformities. Right radial no hematoma, neurovascularly intact distally NEUROLOGICAL: Awake and alert. No obvious cranial nerve deficits. Motor grossly within normal limits. Five out of 5 muscle strength in the arms and legs. Normal speech. PSYCHIATRIC: Appropriate mood and affect; insight and judgment normal. Assessment and Plan - Assessment (1) Acute ST elevation myocardial infarction (STEMI) due to occlusion of right coronary artery Code(s): I21.3 - ST elevation (STEMI) myocardial infarction of unspecified site Status: Acute (2) Coronary stent thrombosis Code(s): T82.867A - Thrombosis due to cardiac prosthetic devices, implants and grafts, initial encounter Status: Acute (3) CAD (coronary artery disease) Code(s): I25.10 - Atherosclerotic heart disease of [place] coronary artery without angina pectoris Status: Acute (4) Obesity (BMI 30-39.9) Code(s): E66.9 - Obesity, unspecified Status: Acute (5) Diabetes Code(s): E11.9 - Type 2 diabetes mellitus without complications Status: Acute (6) HTN (hypertension) Code(s): I10 - Essential (primary) hypertension Status: Acute (7) Tobacco abuse Code(s): Z72.0 - Tobacco use Status: Acute - Plan 1) Acute inferior STEMI with subacute stent thrombosis Due to only taking Brilinta once a day s/p POBA of prox RCA stent, and restenting of mid RCA stent with an Nasim LARA (3x18) ASA/Brilinta/BB/Statin JONE-I on hold due to generalized erythema Will consider placing on ARB, but would hold that until erythema resolves 2) 2D echo pending 3) May transfer out to [facility] 4) Most likely discharge in morning 5) Tobacco cessation
[2017-09-11] MEDS: Metoprolol Tartrate 50 MG Tablet PO SCH ×2 (15:16→17:14)
[2017-09-11] MEDS: Insulin NovoLIN Regular Correctional Sugar Inj SQ SCH ×3 (15:17→21:15)
[2017-09-11] MEDS ORDERED: Gemfibrozil 600 MG Tablet PO SCH (17:00)
[2017-09-11] MEDS ORDERED: LORazepam 0.5 MG Tablet PO ONE (20:01)
--- NOTE | 2017-09-12 00:08 | ECG ---
Date Performed: 09/11/2017 Time Performed: 07:41:02 PTAGE: 62 years EKG: Sinus arrhythmia Inferior infarct - age undetermined QRS changes V3/V4 may be due to LVH bu t cannot rule out anterior infarct Low QRS voltages in precordial leads Abnormal ECG PREVIOUS TRACING : 09/10/2017 18.54 Compared to previous tracing, evolution of myocardial infa rction with resolution of ST elevations DOCTOR: Jaron Frias Interpretating Date/Time 09/12/2017 00:07:00
[2017-09-12] MEDS: Duloxetine 60 MG DR Capsule PO SCH (08:30)
[2017-09-12] MEDS: Pantoprazole Sodium 20 MG DR Tablet PO SCH (08:30)
[2017-09-12] MEDS: Gabapentin 300 MG Capsule PO SCH (08:30)
[2017-09-12] MEDS: Metoprolol Tartrate 50 MG Tablet PO SCH (08:31)
[2017-09-12] MEDS: glipiZIDE 5 MG Tablet PO SCH (08:32)
[2017-09-12] MEDS: Folic Acid 1 MG Tablet PO SCH (08:32)
[2017-09-12] MEDS: Insulin NovoLIN Regular Correctional Sugar Inj SQ SCH ×3 (08:33→11:48)
--- NOTE | 2017-09-12 11:43 | P.PN ---
Subjective Interval history: Follow-up chest pain September 12, 2017-patient seen and examined, denies any chest pain or shortness of breath. Looking forward go home today. Vital stable. Physical Exam Vital signs: Vital Signs 09/11/17 15:00 09/11/17 19:00 09/11/17 23:00 Temperature 97.7 F 98.5 F 98.5 F Pulse Rate 82 81 78 Respiratory Rate 18 22 22 Blood Pressure 104/69 106/62 115/76 Pulse Oximetry 97 98 09/12/17 03:00 09/12/17 07:00 09/12/17 11:00 Temperature 98.2 F 98.2 F 97.5 F L Pulse Rate 82 80 75 Respiratory Rate 22 16 16 Blood Pressure 138/95 H 143/91 H 143/99 H Pulse Oximetry 94 L 97 97 Intake & Output 09/11/17 09/12/17 09/12/17 18:59 06:59 18:59 Intake Total 1770 / 1770 480 / 480 Output Total 2000 / 2000 600 / 600 Balance -230 / -230 -120 / -120 Weight 101.5 kg Intake: Oral 1770 / 1770 480 / 480 Output: Urine 1999 / 2000 600 / 600 Other: Date of Last Bowel Movement 09/10/17 09/10/17 Narrative: GENERAL: NAD SKIN: Warm and dry. HEAD: Normocephalic. EYES: No scleral icterus. No injection or drainage. NECK: Supple, trachea midline. No JVD or lymphadenopathy. CARDIOVASCULAR: Regular rate and rhythm without murmurs, gallops, or rubs. RESPIRATORY: Breath sounds equal bilaterally. No accessory muscle use. GASTROINTESTINAL: Abdomen soft, non-tender, nondistended. MUSCULOSKELETAL: No cyanosis, or edema. BACK: Nontender without obvious deformity. No CVA tenderness. Results - Labs CBC & Chem 7: 09/10/17 18:55 09/11/17 04:18 Laboratory Results - last 24 hr 09/11/17 09/11/17 09/11/17 04:18 12:28 17:02 POC Glucose 259 H 229 H Magnesium 1.8 09/11/17 09/12/17 20:47 08:21 POC Glucose 223 H 189 H Magnesium Assessment and Plan - Plan 62-year-old female with History of CAD recent STEMI 08/29 admitted for chest pain S/P cardiac cath- 09/10- RCA showing proximal stent 100% occluded Hypertension Hyperlipidemia -Currently on on ASA, Brillinta bid, BB 50 mg po q8, statin. JOEN inhibitor on hold - 2D echo pending DM type 2 - ff blood sugars with coverage History of Hypothyroidism -continue Synthroid Hypokalemia- improved Generalized erythema- no wheezes - per patient had same reaction in the past ? JONE-I - hold JONE and monitor Depression- continue home meds Increase activity- ambulate around room Discharge Planning: Today September 12, 2017
--- NOTE | 2017-09-12 12:12 | P.PNCA ---
Subjective Interval history: No events overnight Erythema better No chest pain Physical Exam Vital signs: Vital Signs 09/11/17 15:00 09/11/17 19:00 09/11/17 23:00 Temperature 97.7 F 98.5 F 98.5 F Pulse Rate 82 81 78 Respiratory Rate 18 22 22 Blood Pressure 104/69 106/62 115/76 Pulse Oximetry 97 98 09/12/17 03:00 09/12/17 07:00 09/12/17 11:00 Temperature 98.2 F 98.2 F 97.5 F L Pulse Rate 82 80 75 Respiratory Rate 22 16 16 Blood Pressure 138/95 H 143/91 H 143/99 H Pulse Oximetry 94 L 97 97 Intake & Output 09/11/17 09/12/17 09/12/17 18:59 06:59 18:59 Intake Total 1770 / 1770 480 / 480 Output Total 1999 / 1999 600 / 600 Balance -230 / -230 -120 / -120 Weight 101.5 kg Intake: Oral 1770 / 1770 480 / 480 Output: Urine 1999 600 / 600 Other: Date of Last Bowel Movement 09/10/17 09/10/17 - Constitutional no acute distress, morbidly obese - Routine HEENT Exam Head: Present: normocephalic, atraumatic Eye: Present: EOMI, PERRL ENT: Present: mucous membranes moist - Routine Neck Exam Present: supple, full ROM - Routine Respiratory Exam Present: CTA bilaterally - Routine Cardiovascular Exam Present: RRR, S1, S2 - Routine Abdominal Exam Present: soft, normoactive bowel sounds - Routine Extremities Exam Absent: cyanosis, clubbing, edema - Routine Skin Exam Present: intact, erythema, dry. Absent: cyanosis - Routine Neurological Exam Present: alert, oriented X3, CN II-XII intact - Detailed Neurological Exam: Coma Scale Verbal Response: Oriented - Routine Psychiatric Exam Present: normal affect Assessment and Plan - Assessment (1) Acute ST elevation myocardial infarction (STEMI) due to occlusion of right coronary artery Code(s): I21.3 - ST elevation (STEMI) myocardial infarction of unspecified site Status: Acute (2) Coronary stent thrombosis Code(s): T82.867A - Thrombosis due to cardiac prosthetic devices, implants and grafts, initial encounter Status: Acute (3) CAD (coronary artery disease) Code(s): I25.10 - Atherosclerotic heart disease of [place] coronary artery without angina pectoris Status: Acute (4) Obesity (BMI 30-39.9) Code(s): E66.9 - Obesity, unspecified Status: Acute (5) Diabetes Code(s): E11.9 - Type 2 diabetes mellitus without complications Status: Acute (6) HTN (hypertension) Code(s): I10 - Essential (primary) hypertension Status: Acute (7) Tobacco abuse Code(s): Z72.0 - Tobacco use Status: Acute - Plan 1) Acute inferior STEMI with subacute stent thrombosis Due to only taking Brilinta once a day s/p POBA of prox RCA stent, and restenting of mid RCA stent with an [place] LARA (3x18) ASA/BB/Statin JONE-I on hold due to generalized erythema concern for allergy/reaction Will also not start ARB due to cross-reactivity, will consider outpatient Brilinta too expensive for refills per the patient, will load with Plavix 600mg then 75mg daily 2) Tobacco cessation 3) Cardiovascularly stable for discharge Follow up with Dr. Mars or myself 4) Echo pending Preliminary shows normal ejection fraction with no significant valvulopathies
--- NOTE | 2017-09-12 12:29 | P.DS ---
Date of admission: 09/10/17 19:37 Primary care physician: UNKNOWN Brief History from admission: Eva Giang is a pleasant 62-year-old female who presented to [facility] due to chest pain. She was previously here and underwent cardiac catheterization on 08/29/[address] Mars. During this, she ended up with 4 drug-eluting stents in her RCA. She was discharged home on aspirin 81 mg, as well as Brilinta 90 mg b.i.d. The patient believes that she only received Brilinta 90 mg once a day with 30 tablets and so has only been taking it once a day. She comes in after chest pain started in the center of the chest similar to her previous episode but worse. On arrival to the emergency room, an EKG was done which showed ST elevations in the inferior with posterior and lateral extension. I was called emergently and saw the patient in the emergency room. DS: Medications - Discharge Medications Prescriptions: metoprolol tartrate 50 mg PO TID #90 tab DS: Summary Hospital Course: During hospitalization, cardiology was consulted and patient started on Brilinta , beta-florentin and statin. Vitals were monitored. All electrolyte abnormalities were corrected accordingly. DVT and GI prophylaxis were provided. Prior to discharge, patient's condition improved. Patient will follow up with PCP within 1 week - Time Spent with Patient Total time spent providing and/or coordinating discharge services: Greater than 30 minutes Exam Vital signs: Vital Signs 09/11/17 15:00 09/11/17 19:00 09/11/17 23:00 Temperature 97.7 F 98.5 F 98.5 F Pulse Rate 82 81 78 Respiratory Rate 18 22 22 Blood Pressure 104/69 106/62 115/76 Pulse Oximetry 97 98 09/12/17 03:00 09/12/17 07:00 09/12/17 11:00 Temperature 98.2 F 98.2 F 97.5 F L Pulse Rate 82 80 75 Respiratory Rate 22 16 16 Blood Pressure 138/95 H 143/91 H 143/99 H Pulse Oximetry 94 L 97 97 Intake & Output 09/11/17 09/12/17 09/12/17 18:59 06:59 18:59 Intake Total 1770 / 1770 480 / 480 Output Total 1999 / 1999 600 / 600 Balance -230 / -230 -120 / -120 Weight 101.5 kg Intake: Oral 1770 / 1770 480 / 480 Output: Urine 1999 / 1999 600 / 600 Other: Date of Last Bowel Movement 09/10/17 09/10/17 - Constitutional no acute distress - Routine HEENT Exam Head: Present: normocephalic Eye: Present: EOMI, PERRL, normal accommodation ENT: Present: mucous membranes moist, oropharynx clear - Routine Neck Exam Present: supple, full ROM - Routine Respiratory Exam Present: CTA bilaterally - Routine Cardiovascular Exam Present: RRR - Routine Abdominal Exam Present: soft, normoactive bowel sounds - Routine Extremities Exam Present: full ROM, normal capillary refill - Routine Skin Exam Present: intact - Routine Neurological Exam Present: oriented X3, CN II-XII intact, normal tone Results Procedures completed during hospitalization: None Labs on day of discharge: Labs from last 24 hours 09/12/17 09/12/17 09/11/17 11:42 08:21 20:47 POC Glucose 209 H 189 H 223 H Magnesium 09/11/17 09/11/17 09/11/17 17:02 12:28 04:18 POC Glucose 229 H 259 H Magnesium 1.8 Discharge Plan - Discharge Disposition Patient Disposition: Discharge Home - Discharge Condition Condition: Good - Discharge Order Discharge Orders: Discharge Order (Routine); Ordered 09/12/17 Ordered By: Hayden Patton - Discharge Details Anticipated Discharge Date/Time: 09/12/17 11:45 - Physicians Team Primary Care Provider: UNKNOWN, Attending Provider: Hayden Patton Other Providers: Kavita Ram MD ; Jaron Frias DO - Rxs /Orders / Referrals /Forms Prescriptions: New metoprolol tartrate 50 mg Tablet 50 mg PO TID Qty: 90 RF: 0 Continue aspirin 81 mg Tablet,Chewable 81 mg PO DAILY atorvastatin [Lipitor] 80 mg Tablet 80 mg PO DAILY buspirone 10 mg Tablet 10 mg PO BID duloxetine [Cymbalta] 60 mg Capsule,Delayed Release(Dr/Ec) 60 mg PO DAILY folic acid 1 mg Tablet 1 mg PO DAILY gabapentin [Neurontin] 300 mg Capsule 300 mg PO TID gemfibrozil 600 mg Tablet 600 mg PO BID glipizide 5 mg Tablet 2.5 mg PO BIDAC levothyroxine [Synthroid] 25 mcg Tablet 25 mcg PO DAILY Discontinued enalapril maleate [Vasotec] 5 mg Tablet 5 mg PO DAILY metoprolol tartrate 50 mg Tablet 50 mg PO BID ticagrelor [Brilinta] 90 mg Tablet 90 mg PO BID Referrals: Primary Care Aretha Barrera [TEST MD] - See Instructions ( Please call the physician's office to book the appointment to be seen within 1 week [].) UNKNOWN, [Primary Care Provider] - See Instructions - Post Discharge Care Plan Care Plan Goals: Discharge Care Plan Goals for Heart Attack Directions to Meet your Goals: 1. Home Care: * Take your medicines exactly as directed. Dont skip doses. Talk with your doctor if your medicines aren't working for you. * Remember that recovery after a heart attack takes time. Plan to rest for at least 4 to 8 weeks while you recover. Then return to normal activity when your doctor says its OK. * Join a heart rehabilitation program if recommended by your doctor. This can help strengthen your heart and lungs and give you more energy and confidence. * Tell your doctor if you are feeling depressed. Feelings of sadness are common after a heart attack. But it is important to speak to someone or seek counseling if you are feeling overwhelmed by these feelings. * Call 911 right away if you have chest pain or pain that goes to your shoulder , neck, or back. Don't drive yourself to the hospital. * Ask your family members to learn CPR. This is an important skill that can save lives when it's needed. * Learn to take your own blood pressure and pulse. Keep a record of your results. 2. Diet: You may need to see a registered dietitian for help with these diet changes. These changes may include: * Cutting back on how much fat and cholesterol you eat * Cutting back on how much salt (sodium) you eat, especially if you have high blood pressure * Eating more fresh vegetables and fruits * Eating lean proteins such as fish, poultry, beans, and peas, and eating less red meat and processed meats * Using low-fat dairy products * Using vegetable and nut oils in limited amounts * Limiting how many sweets and processed foods such as chips, cookies, and baked goods you eat * Limiting how often you eat out. And when you do eat out, making better food choices. * Not eating fried or greasy foods, or foods high in saturated fat 3. Exercise and Activity: * Follow your doctor's directions on exercises and activity * If your doctor may recommends that you get moderate to vigorous physical activity, here are few examples of moderate to vigorous activity include: * Walking at a brisk pace, about 3 to 4 miles per hour * Jogging or running * Swimming or water aerobics * Hiking * Dancing * Martial arts * Tennis * Riding a bicycle or stationary bike 4. Lifestyle Modifications: * Weight Management: For Losing weight, making dietary changes and getting more exercise can help. A good goal is to lose your 10% of your body weight in one year. * Stop smoking. Sign up for a stop-smoking program to make it more likely for you to quit for good. You can join a stop-smoking support group. Or ask your doctor about nicotine replacement products. * Stress Management: Learn to manage stress. Stress management techniques to help you deal with stress in your home and work life. This will help you feel better emotionally and ease the strain on your heart. 5. Follow-Up: Do Not miss your follow-up appointment. Keep up with all your appointments and yearly check ups When to call your doctor: Call your doctor right away if you have: Lightheadedness, dizziness, or fainting Feeling of irregular heartbeat or fast pulse Call 911: Call 911 right away if you have: * Chest pain that goes to your neck, jaw, back, or shoulder * Shortness of breath
--- NOTE | 2017-09-12 14:52 | ECHRPT ---
Indication: STEMI CONCLUSIONS The left ventricular systolic function is normal with an estimated ejection fraction in the range of 60-65%. Normal left ventricular size. Mild concentric left ventricular hypertrophy. No regional wall motion abnormalities are present. Trace aortic valve regurgitation. BP: / HR: Rhythm: Sinus MEASUREMENTS (Male / Female) Normal Values Technical Quality:Fair 2D ECHO LV Diastolic Diameter PLAX 4.4 cm 4.2 - 5.9 / 3.9 - 5.3 cm LV Systolic Diameter PLAX 3.2 cm IVS Diastolic Thickness 1.3 cm 0.6 - 1.0 / 0.6 - 0.9 cm LVPW Diastolic Thickness 1.3 cm 0.6 - 1.0 / 0.6 - 0.9 cm LV Relative Wall Thickness 0.6 LVOT Diameter 2.0 cm LA Systolic Diameter LX 3.9 cm 3.0 - 4.0 / 2.7 - 3.8 cm LV Ejection Fraction MOD 4C 65.1 % LV Ejection Fraction 4C AL 66.0 % M-MODE Aortic Root Diameter MM 2.2 cm LA Systolic Diameter MM 3.9 cm LA Ao Ratio MM 1.8 AV Cusp Separation MM 2.0 cm DOPPLER AV Peak Velocity 133.0 cm/s AV Peak Gradient 7.1 mmHg AI Peak Velocity 160.0 cm/s AI Peak Gradient 10.2 mmHg AI Pressure Half Time 685.0 ms LVOT Peak Velocity 105.0 cm/s LVOT Peak Gradient 4.4 mmHg AV Area Cont Eq pk 2.5 cm MV Area PHT 4.3 cm Mitral E Point Velocity 80.0 cm/s Mitral A Point Velocity 93.8 cm/s Mitral E to A Ratio 0.9 LV E' Lateral Velocity 6.6 cm/s Mitral E to LV E' Lateral Ratio 12.1 LV E' Septal Velocity 6.3 cm/s Mitral E to LV E' Septal Ratio 12.6 PV Peak Velocity 109.0 cm/s PV Peak Gradient 4.8 mmHg FINDINGS LEFT VENTRICLE The left ventricular systolic function is normal with an estimated ejection fraction in the range of 60-65%. Normal left ventricular size. Mild concentric left ventricular hypertrophy. No regional wall motion abnormalities are present. RIGHT VENTRICLE Normal right ventricular size and systolic function. LEFT ATRIUM The left atrial size is normal. RIGHT ATRIUM The right atrial size is normal. ATRIAL SEPTUM Normal atrial septal thickness without atrial level shunting by limited color doppler interrogation. AORTA The aortic root and proximal ascending aorta are normal in size on limited imaging. MITRAL VALVE Structurally normal mitral valve. No mitral valve stenosis or regurgitation. AORTIC VALVE Trileaflet aortic valve. Trace aortic valve regurgitation. TRICUSPID VALVE Structurally normal tricuspid valve. No tricuspid valve stenosis or regurgitation. PULMONARY VALVE The pulmonary valve is not well visualized. VESSELS The inferior vena cava is normal in size. PERICARDIUM No pericardial effusion. Kilo Iverson MD, FACC (Electronically Signed) Final Date:12 September 2017 14:51
== END 2017-09-12 13:20 | disposition home or self-care (01) ==
LOC: UNDODISIN → NEDA 19:37 → HCVI 20:59
PROVIDERS: ADMIT Hospitalist; ATTEND Hospitalist